=== PATIENT | male | born 1945 | race Hispanic/Latino ===

== ENCOUNTER 2016-06-27 17:37 | Emergency (ER) | payer MEDICARE, OTHER ==
[2016-06-27 17:43] VITALS: RESP 21; TEMP 98.9; O2SAT 100
--- NOTE | 2016-06-27 18:19 | ED PDOC ---
HPI: General Adult Time Seen by Provider: 06/27/16 17:47 Chief Complaint (Nursing): High Blood Pressure Chief Complaint (Provider): I felt my pressure high History Per: Patient History/Exam Limitations: no limitations Current Symptoms Are (Timing): Still Present Recently: Seen In ED Additional Complaint(s): 70yo male states he took his BP at home and was elevated 150/90, c/o feeling mildly dizzy. Took his benicar about 4hrs ago. Denies chest pain, fever, headache, SOB or focal weakness. Appears intoxicated with flat affect. Denies drinking alcohol today. Past Medical History Reviewed: Historical Data, Nursing Documentation, Vital Signs Vital Signs: Last Vital Signs Temp 98.9 F 06/27/16 17:39 Pulse 62 06/27/16 19:04 Resp 21 06/27/16 17:39 BP 125/66 06/27/16 19:04 Pulse Ox 100 06/27/16 18:21 - Medical History PMH: Depression, HTN - Family History Family History: States: Unknown Family Hx - Home Medications Home Medications: Ambulatory Orders Medication Instructions Recorded Amoxicillin/Clavulanate [Augmentin 1 tab PO BID #14 tab 03/24/16 875 MG-125 MG] MetFORMIN [glucoPHAGE] PO DAILY 03/24/16 Olmesartan Medoxomil [Benicar] 5 mg PO DAILY 03/24/16 traMADol [Ultram] 50 mg PO TID PRN #15 tab 03/24/16 - Allergies Allergies/Adverse Reactions: Allergies Allergy/AdvReac Type Severity Reaction Status Date / Time No Known Allergies Allergy Verified 03/24/16 17:12 Review of Systems ROS Statement: Except As Marked, All Systems Reviewed And Found Negative Constitutional: Negative for: Fever, Chills Cardiovascular: Positive for: Light Headedness Respiratory: Negative for: Cough, Shortness of Breath Gastrointestinal: Negative for: Nausea, Vomiting Genitourinary Male: Negative for: Dysuria, Frequency, Incontinence Musculoskeletal: Negative for: Shoulder Pain Neurological: Positive for: Dizziness. Negative for: Weakness, Numbness, Seizures, Altered Mental Status Physical Exam - Reviewed Nursing Documentation Reviewed: Yes Vital Signs Reviewed: Yes - Physical Exam Appears: Positive for: Well, Non-toxic, No Acute Distress Head Exam: Positive for: ATRAUMATIC, NORMAL INSPECTION, NORMOCEPHALIC Skin: Positive for: Warm, Diaphoresis (mild) Eye Exam: Positive for: EOMI, Normal appearance, PERRL ENT: Positive for: Normal ENT Inspection Neck: Positive for: Normal, Painless ROM Cardiovascular/Chest: Positive for: Regular Rate, Rhythm Respiratory: Positive for: CNT, Normal Breath Sounds Gastrointestinal/Abdominal: Positive for: Normal Exam, Bowel Sounds, Soft. Negative for: Tenderness, Guarding Back: Positive for: Normal Inspection Extremity: Positive for: Normal ROM Neurologic/Psych: Positive for: Alert, Oriented, Mood/Affect (flat). Negative for: Motor/Sensory Deficits - Laboratory Results Result Diagrams: 06/27/16 18:36 06/27/16 18:36 - ECG O2 Sat by Pulse Oximetry: 100 Pulse Ox Interpretation: Normal Medical Decision Making Medical Decision Making: will check basic labs, etoh level and EKG. Monitor in ED given clinical presentation. Old charts reviewed. Disposition - Clinical Impression Clinical Impression: Elevated blood pressure reading - Patient ED Disposition Is Patient to be Admitted: Transfer of Care - Disposition Referrals: FAMILY PROVIDER,NO [Primary Care Provider] - Disposition Time: 19:07 Condition: STABLE Patient Signed Over To: Chela Shipman Handoff Comments: pending re-eval/labs
[2016-06-27 18:41] LABS: BASO # 0.1 K/uL (0.0-0.2); BASO % 0.5 % (0.0-2.0); EOS # 0.1 K/uL (0.0-0.7); EOS % 0.5 % (0.0-4.0); HEMATOCRIT 35.7 % (35.0-51.0); LYMPH # 1.9 K/uL (1.0-4.3); LYMPH % 19.1 % (20.0-40.0); MEAN CELL VOLUME 85.4 fl (80.0-94.0); MEAN CORPUSCULAR HEMOGLOBIN 27.8 pg (27.0-31.0); MEAN CORPUSCULAR HGB CONC 32.5 g/dL (33.0-37.0); MEAN PLATELET VOLUME 8.3 fl (7.2-11.7); MONO # 1.3 K/uL (0.0-0.8); MONO % 12.6 % (0.0-10.0); NEUT # 6.8 K/uL (1.8-7.0); NEUT % 67.3 % (50.0-75.0); RED CELL DISTRIBUTION WIDTH 15.3 % (11.5-14.5); WHITE BLOOD COUNT 10.2 K/uL (4.8-10.8)
[2016-06-27 18:52] LABS: ALCOHOL SERUM < 10 mg/dl (0-10); BLOOD UREA NITROGEN 13 mg/dl (9-20); CALCIUM 9.2 mg/dL (8.4-10.2); CARBON DIOXIDE 23 mmol/L (22-30); CHLORIDE 103 mmol/L (98-107); GFR AFRICAN-AMERICAN > 60; GLUCOSE,RANDOM 98 mg/dL (75-110); POTASSIUM 4.7 MMOL/L (3.6-5.0); SODIUM 142 mmol/l (132-148)
[2016-06-27 19:05] VITALS: BP 125/66; PULSE 62
--- NOTE | 2016-06-27 19:42 | ED PDOC ---
- Laboratory Results Result Diagrams: 06/27/16 18:36 06/27/16 18:36 - ECG O2 Sat by Pulse Oximetry: 100 (RA) Pulse Ox Interpretation: Normal Medical Decision Making Medical Decision Makin:00 Patient endorsed over to me by Rafat Villa III, DO, pending remainder of ED workup, reevaluation and final disposition. 22:45 Labs and urine reviewed with no clinically significant abnormalities. Upon provider reevaluation patient is feeling better, is medically stable, and requires no further treatment in the ED at this time. Patient will be discharged home. Counseling was provided and all questions were answered regarding diagnosis and need for follow up with his the referred clinic. Information for information broker service also given to facilitate making of followup appointment. There is agreement to discharge plan. Return if symptoms persist or worsen. Clinical Impression: elevated blood pressure reading Scribe Attestation: Documented by Isabel Soriano, acting as a scribe for Chela Shipman MD. Provider Scribe Attestation: All medical record entries made by the Scribe were at my direction and personally dictated by me. I have reviewed the chart and agree that the record accurately reflects my personal performance of the history, physical exam, medical decision making, and the department course for this patient. I have also personally directed, reviewed, and agree with the discharge instructions and disposition. Disposition Counseled Patient/Family Regarding: Studies Performed, Diagnosis, Need For Followup - Clinical Impression Clinical Impression: Elevated blood pressure reading - POA Present On Arrival: None - Disposition Referrals: [facility] [Outside] [facility] [Outside] FAMILY PROVIDER,NO [Primary Care Provider] - Disposition: Routine/Home Disposition Time: 22:05 Condition: STABLE Additional Instructions: follow up with your primary doctor in 2 days. return to the ED with any worsening or concerning symptoms Instructions: Hypertension (ED)
--- NOTE | 2016-06-28 19:36 | CARD ---
APPROVED REPORT EKG Measurement Heart [id number] <Conclusion> Sinus rhythm with 1st degree AV block Left anterior fascicular block Nonspecific ST abnormality Abnormal ECG
== END 2016-06-27 22:55 | disposition home or self-care (01) ==
LOC: H.ER 17:37
DX: I10 Essential (primary) hypertension (principal)
CPT/HCPCS: 80048; 85025; 93005; 99284; G0480

== ENCOUNTER 2016-07-03 05:08 | Emergency (ER) | payer MEDICARE ==
[2016-07-03 05:33] VITALS: BP 156/80; PULSE 61; RESP 16; TEMP 98.7; O2SAT 100
--- NOTE | 2016-07-03 05:52 | ED PDOC ---
Lower Extremity Pain/Injury Time Seen by Provider: 07/03/16 05:25 Chief Complaint (Nursing): Lower Extremity Problem/Injury Chief Complaint (Provider): left foot/ankle pain History Per: Patient History/Exam Limitations: no limitations Onset/Duration Of Symptoms: Days (2) Current Symptoms Are (Timing): Still Present Additional History Per: Patient Additional Complaint(s): 70 y/o male history of hypertension ambulates to ED for left ankle/foot pain x 2 days. Patient states he has been doing excessive walking and notes pain to start on outside of ankle and top of foot. Patient notes this has been on-and- off issue x years. Denies fever, trauma, numbness/weakness left lower extremity, limitation of movement. No relief with Tylenol. Past Medical History Reviewed: Historical Data, Nursing Documentation, Vital Signs Vital Signs: Last Vital Signs Temp 98.7 F 07/03/16 05:25 Pulse 61 07/03/16 05:25 Resp 16 07/03/16 05:25 BP 156/80 H 07/03/16 05:25 Pulse Ox 100 07/03/16 05:25 - Medical History PMH: Depression, HTN - Family History Family History: States: Unknown Family Hx - Home Medications Home Medications: Ambulatory Orders Medication Instructions Recorded Amoxicillin/Clavulanate [Augmentin 1 tab PO BID #14 tab 03/24/16 875 MG-125 MG] MetFORMIN [glucoPHAGE] PO DAILY 03/24/16 Olmesartan Medoxomil [Benicar] 5 mg PO DAILY 03/24/16 traMADol [Ultram] 50 mg PO TID PRN #15 tab 03/24/16 Ibuprofen [Motrin Tab] 1 tab PO Q6 PRN #15 tab 07/03/16 - Allergies Allergies/Adverse Reactions: Allergies Allergy/AdvReac Type Severity Reaction Status Date / Time No Known Allergies Allergy Verified 03/24/16 17:12 Review of Systems ROS Statement: Except As Marked, All Systems Reviewed And Found Negative Musculoskeletal: Positive for: Foot Pain (left foot, left ankle) Physical Exam - Reviewed Nursing Documentation Reviewed: Yes Vital Signs Reviewed: Yes - Physical Exam Appears: Positive for: Well, Non-toxic, No Acute Distress Pulses-Dorsalis Pedis (L): 2+ Pulses-Dorsalis Pedis (R): 2+ Pulses-Post. Tibialis (L): 2+ Pulses-Post. Tibialis (R): 2+ Extremity: Positive for: Normal ROM, Tenderness (tender to palpate dorsal proximal left foot, left 2-3 metarsals, left lateral malleolus. No obvious swelling, deformity, erythema, temperature change noted) Neurologic/Psych: Positive for: Alert, Oriented. Negative for: Motor/Sensory Deficits - ECG O2 Sat by Pulse Oximetry: 100 - Other Rad xray left ankle X-Ray: Viewed By Me X-Ray Interpretation: no acute findings xray left foot X-Ray: Viewed By Me X-Ray Interpretation: no acute findings - Progress ED Course And Treament: xray, ibuprofen Patient educated on findings, left foot wrapped in MANDA, air cast given. Educated on RICE. Rx ibuprofen given. Follow up Podiatry. RICE. Return to ED for worsening/concerning symptoms. Disposition - Clinical Impression Clinical Impression: Arthralgia - Patient ED Disposition Is Patient to be Admitted: No Counseled Patient/Family Regarding: Studies Performed, Diagnosis, Need For Followup, Rx Given - Disposition Referrals: Podiatry Clinic [Outside] Disposition: Routine/Home Disposition Time: 06:21 Condition: STABLE Prescriptions: Ibuprofen [Motrin Tab] 1 tab PO Q6 PRN #15 tab PRN Reason: Pain, Moderate (4-7) Instructions: Arthralgia (ED), RICE Therapy (ED)
--- NOTE | 2016-07-03 08:18 | RAD ---
PROCEDURE: Left Ankle Radiographs. HISTORY: atraumatic pain COMPARISON: 03/24/2016 FINDINGS: BONES: Mild osseous hypertrophy consistent with degenerative changes of the medial talar body are noted and similar-appearing. Anterior tibial plafond osseous hypertrophy No fracture. The posterior talar process is prominent as before. Anterior inferior mild calcaneal spurs are suggested. JOINTS: Normal. No osteoarthritis. Ankle mortise maintained. Talar dome intact SOFT TISSUES: Atherosclerotic vascular calcifications OTHER FINDINGS: None. IMPRESSION: Mild osseous hypertrophic changes as above- degenerative basis is consistent with this. No fracture or bone destruction noted. Atherosclerotic vascular disease. Comments: If symptoms persist/warrant consider MRI.
--- NOTE | 2016-07-03 08:39 | RAD ---
PROCEDURE: Left Foot Radiographs. HISTORY: pain, dorsal left foot COMPARISON: 03/24/2016 FINDINGS: BONES: Bipartite medial an lateral sesamoid bones No fracture. Anterior inferior calcaneal spurring Prominent posterior talar process. Minimal hypertrophic changes anterior tibial plafond JOINTS: . Mild 1st metatarsal-phalangeal joint arthrosis SOFT TISSUES: Atherosclerotic vascular calcifications OTHER FINDINGS: None. IMPRESSION: Mild degenerative changes as above. Developmental variants - sesamoid bones No acute fracture or acute pathology noted Atherosclerotic vascular disease
== END 2016-07-03 06:50 | disposition home or self-care (01) ==
LOC: H.ER 05:08
DX: M79.672 Pain in left foot (principal); M25.50 Pain in unspecified joint; I10 Essential (primary) hypertension; Z79.84 Long term (current) use of oral hypoglycemic drugs

== ENCOUNTER 2016-07-08 22:11 | Emergency (ER) | payer MEDICARE ==
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
[2016-07-09 05:43] VITALS: BP 148/72; PULSE 77; RESP 17; TEMP 98.3; O2SAT 98
== END 2016-07-09 05:44 | disposition home or self-care (01) ==
LOC: H.ER 22:11
DX: M54.2 Cervicalgia (principal); I10 Essential (primary) hypertension; Z79.84 Long term (current) use of oral hypoglycemic drugs

== ENCOUNTER 2016-07-13 04:26 | Emergency (ER) | payer MEDICARE ==
[2016-07-13 04:40] VITALS: BP 159/77; PULSE 81; RESP 16; TEMP 98.1; O2SAT 100
--- NOTE | 2016-07-13 04:50 | ED PDOC ---
HPI: General Adult Time Seen by Provider: 07/13/16 04:30 Chief Complaint (Nursing): Lower Extremity Problem/Injury Chief Complaint (Provider): Foot blister History Per: Patient Additional Complaint(s): Pt. states for the past 2 weeks he's had blisters underneath his feet. Pt. attributes these to walking approximately 10 miles a day. Further states he did have a hx of DM but is currently not on medications. Denies fever, trauma, numbness, tingling. Past Medical History Reviewed: Historical Data, Nursing Documentation, Vital Signs Vital Signs: Last Vital Signs Temp 98.1 F 07/13/16 04:36 Pulse 81 07/13/16 04:36 Resp 16 07/13/16 04:36 BP 159/77 H 07/13/16 04:36 Pulse Ox 100 07/13/16 04:52 - Medical History PMH: Depression, HTN - Family History Family History: States: Unknown Family Hx - Home Medications Home Medications: Ambulatory Orders Medication Instructions Recorded No Known Home Med 07/13/16 - Allergies Allergies/Adverse Reactions: Allergies Allergy/AdvReac Type Severity Reaction Status Date / Time No Known Allergies Allergy Verified 03/24/16 17:12 Review of Systems ROS Statement: Except As Marked, All Systems Reviewed And Found Negative Musculoskeletal: Positive for: Foot Pain Physical Exam - Physical Exam Appears: Positive for: Well, Non-toxic, No Acute Distress Skin: Positive for: Normal Color, Warm. Negative for: Rash Extremity: Positive for: Normal ROM, Other (multiple healing blisters without break in skin integrity or surrounding erythema or discharge on plantar surface of proximal phalanxes of all toes on L foot) - ECG O2 Sat by Pulse Oximetry: 100 - Progress ED Course And Treament: FSBS: 144 Bacitracin ointment applied to blisters. Disposition - Clinical Impression Clinical Impression: Friction blister - Patient ED Disposition Is Patient to be Admitted: No - Disposition Referrals: [facility] [Outside] Disposition: Routine/Home Disposition Time: 05:06 Condition: STABLE Instructions: Blister (ED)
[2016-07-13] MEDS ORDERED: Bacitracin OINT 15GM TOP STA (05:05)
== END 2016-07-13 05:23 | disposition home or self-care (01) ==
LOC: H.ER 04:26
DX: M79.673 Pain in unspecified foot (principal); E11.9 Type 2 diabetes mellitus without complications; I10 Essential (primary) hypertension

== ENCOUNTER 2016-07-13 21:58 | Emergency (ER) | payer MEDICARE ==
[2016-07-13 22:04] VITALS: BP 164/81; PULSE 84; RESP 18; TEMP 97.8; O2SAT 98
--- NOTE | 2016-07-13 22:13 | ED PDOC ---
HPI: General Adult Time Seen by Provider: 07/13/16 22:05 Chief Complaint (Nursing): Lower Extremity Problem/Injury Chief Complaint (Provider): Blisters to feet History Per: Patient Additional Complaint(s): Pt. states he's had painful blisters to his feet for several weeks now. Pt. was seen earlier this morning by this continuity writer for same complaint. Of note, pt. states he does walk approximately 10 miles a day. Denies fever, trauma, discharge. Past Medical History Reviewed: Historical Data, Nursing Documentation, Vital Signs Vital Signs: Last Vital Signs Temp 97.8 F 07/13/16 22:03 Pulse 84 07/13/16 22:03 Resp 18 07/13/16 22:03 BP 164/81 H 07/13/16 22:03 Pulse Ox 98 07/13/16 22:03 - Medical History PMH: Depression, HTN - Family History Family History: States: No Known Family Hx - Home Medications Home Medications: Ambulatory Orders Medication Instructions Recorded No Known Home Med 07/13/16 - Allergies Allergies/Adverse Reactions: Allergies Allergy/AdvReac Type Severity Reaction Status Date / Time No Known Allergies Allergy Verified 03/24/16 17:12 Review of Systems ROS Statement: Except As Marked, All Systems Reviewed And Found Negative Musculoskeletal: Positive for: Foot Pain Physical Exam - Physical Exam Appears: Positive for: Well, Non-toxic, No Acute Distress Skin: Positive for: Normal Color, Warm. Negative for: Rash Extremity: Positive for: Normal ROM, Other (b/l feet with scattered non-intact vesicles on plantar surface of both feet without surrounding erythema, discharge (unchanged from earlier this morning)) Neurologic/Psych: Positive for: Alert, Oriented - ECG O2 Sat by Pulse Oximetry: 98 Disposition - Clinical Impression Clinical Impression: Friction blister - Patient ED Disposition Is Patient to be Admitted: No - Disposition Disposition: Routine/Home Disposition Time: 22:18 Condition: STABLE Instructions: Blister (ED)
== END 2016-07-13 22:50 | disposition home or self-care (01) ==
LOC: H.ER 21:58
DX: M79.673 Pain in unspecified foot (principal); I10 Essential (primary) hypertension

== ENCOUNTER 2016-07-18 04:42 | Emergency (ER) | payer MEDICARE ==
[2016-07-18 04:57] VITALS: TEMP 98.7
--- NOTE | 2016-07-18 06:18 | ED PDOC ---
HPI: Psych/Substance Abuse Time Seen by Provider: 07/18/16 04:45 Chief Complaint (Nursing): Psychiatric Evaluation Chief Complaint (Provider): Psychiatric Evaluation ED Caveat: Acuity of Condition History Per: Patient History/Exam Limitations: clinical condition Onset/Duration Of Symptoms: Unknown Current Symptoms Are (Timing): Still Present Suicide/Self Injury Attempted (Context): None Additional Complaint(s): 70 year old male presents to ED stating that he needs to be at the ED to run for [employer] and has a past medical history of HTN and DM. Patient denies all other possible comorbidities and gives no other reason for arriving to the ED besides that it is "because he is running for [employer]". Denies all medical complaints. PCP: None Past Medical History Reviewed: Historical Data, Nursing Documentation, Vital Signs Vital Signs: Last Vital Signs Temp 98.7 F 07/18/16 04:52 Pulse 71 07/18/16 05:15 Resp 16 07/18/16 04:52 BP 148/81 07/18/16 05:15 Pulse Ox 99 07/18/16 04:52 - Medical History PMH: Depression, Diabetes, HTN - Surgical History Surgical History: No Surg Hx - Family History Family History: States: Unknown Family Hx - Social History Current smoker - smoking cessation education provided: No Ex-Smoker (has not smoked in the last 12 months): No Alcohol: None Drugs: Denies - Home Medications Home Medications: Ambulatory Orders Medication Instructions Recorded No Known Home Med 07/13/16 - Allergies Allergies/Adverse Reactions: Allergies Allergy/AdvReac Type Severity Reaction Status Date / Time No Known Allergies Allergy Verified 07/18/16 04:52 Review of Systems Review Of Systems: ROS cannot be obtained secondary to pt's inabilty to answer questions. Physical Exam - Reviewed Nursing Documentation Reviewed: Yes Vital Signs Reviewed: Yes - Physical Exam Appears: Positive for: Non-toxic, No Acute Distress Head Exam: Positive for: ATRAUMATIC Skin: Positive for: Normal Color Cardiovascular/Chest: Positive for: Regular Rate, Rhythm. Negative for: Murmur Respiratory: Positive for: Normal Breath Sounds. Negative for: Respiratory Distress Gastrointestinal/Abdominal: Positive for: Normal Exam Extremity: Positive for: Normal ROM. Negative for: Deformity Neurologic/Psych: Positive for: Alert, Mood/Affect (Bizarre affect). Negative for: Oriented, Motor/Sensory Deficits - Laboratory Results Result Diagrams: 07/18/16 06:10 07/18/16 06:10 - ECG O2 Sat by Pulse Oximetry: 99 (RA) Pulse Ox Interpretation: Normal Medical Decision Making Medical Decision Makin Initial impression: bizzzare behavior r/o EtOH intoxication, personality disorder Initial plan: * EtOH serum * Labs * UDrug Screen * Urine C&S * UA awaiting UA and labs Will be medically cleared before psych screening [address] to [address] Ari Lopez Attestation: Documented by Destinee Hammonds acting as a scribe for Chela Shipman. MD Lopez Attestation: All medical record entries made by the Scribe were at my direction and personally dictated by me. I have reviewed the chart and agree that the record accurately reflects my personal performance of the history, physical exam, medical decision making, and the department course for this patient. I have also personally directed, reviewed, and agree with the discharge instructions and disposition. Disposition - Clinical Impression Clinical Impression: Bipolar disorder - Patient ED Disposition Is Patient to be Admitted: Transfer of Care - Disposition Referrals: [facility] [Outside] - 07/19/16 Disposition: Transfer of Care Disposition Time: 07:00 Condition: STABLE Additional Instructions: Return if not better in 3 days. Instructions: Bipolar Disorder (ED) Patient Signed Over To: Fritz Chapman Handoff Comments: Pending crisis eval
[2016-07-18 06:26] LABS: BASO % 0.5 % (0.0-2.0); EOS # 0.1 K/uL (0.0-0.7); EOS % 1.3 % (0.0-4.0); HEMATOCRIT 34.7 % (35.0-51.0); LYMPH # 2.3 K/uL (1.0-4.3); LYMPH % 35.7 % (20.0-40.0); MEAN CELL VOLUME 86.7 fl (80.0-94.0); MEAN CORPUSCULAR HEMOGLOBIN 27.3 pg (27.0-31.0); MEAN CORPUSCULAR HGB CONC 31.5 g/dL (33.0-37.0); MEAN PLATELET VOLUME 9.2 fl (7.2-11.7); MONO % 15.8 % (0.0-10.0); NEUT # 3.1 K/uL (1.8-7.0); NEUT % 46.7 % (50.0-75.0); NRBC % 0.1 % (0.0-0.0); RED CELL DISTRIBUTION WIDTH 16.4 % (11.5-14.5); WHITE BLOOD COUNT 6.5 K/uL (4.8-10.8)
[2016-07-18 06:39] LABS: ALB/GLOB RATIO 1.2 (1.0-2.1); ALCOHOL SERUM < 10 mg/dl (0-10); ALKALINE PHOSPHATASE 64 U/L (38-126); ALT/SGPT 49 U/L (21-72); AST/SGOT 50 U/L (17-59); BILIRUBIN,TOTAL 0.3 mg/dl (0.2-1.3); BLOOD UREA NITROGEN 14 mg/dl (9-20); CARBON DIOXIDE 25 mmol/L (22-30); CHLORIDE 104 mmol/L (98-107); GFR AFRICAN-AMERICAN > 60; GLUCOSE,RANDOM 120 mg/dL (75-110); POTASSIUM 3.8 MMOL/L (3.6-5.0); SODIUM 142 mmol/l (132-148); TOTAL PROTEIN 6.3 G/DL (6.3-8.2)
[2016-07-18 06:40] LABS: RBC URINE < 1 /hpf (0-3); URINE BACTERIA RARE (<OCC); URINE BILIRUBIN NEGATIVE (NEGATIVE); URINE BLOOD NEGATIVE (NEGATIVE); URINE COLOR YELLOW (YELLOW); URINE GLUCOSE (UA) NEG (Normal); URINE KETONE NEGATIVE (NEGATIVE); URINE LEUKOCYTE ESTERASE NEG Leu/uL (Negative); URINE PROTEIN NEGATIVE (NEGATIVE); URINE UROBILINOGEN 0.2-1.0 mg/dL (0.2-1.0); WBC URINE 1 /hpf (0-5)
--- NOTE | 2016-07-18 07:25 | ED PDOC ---
- Laboratory Results Result Diagrams: 07/18/16 06:10 07/18/16 06:10 - ECG O2 Sat by Pulse Oximetry: 99 (RA) - Progress ED Course And Treament: 826: Stable. Crisis saw pt. Does not meet criteria for admit. Fu outpt. AAOx3. Ambulating. Medical Decision Making Medical Decision Making: Time: 0700 Patient signed out by Dr. Shipman pending crisis evaluation Scribe Attestation: Documented by Jacinta Hadley acting as a scribe for Fritz Chapman MD MD Scribe Attestation: All medical record entries made by the Scribe were at my direction and personally dictated by me. I have reviewed the chart and agree that the record accurately reflects my personal performance of the history, physical exam, medical decision making, and the department course for this patient. I have also personally directed, reviewed, and agree with the discharge instructions and disposition. Disposition - Clinical Impression Clinical Impression: Bipolar disorder - POA Present On Arrival: None - Disposition Referrals: [facility] [Outside] - 07/19/16 Disposition: Routine/Home Disposition Time: 08:27 Condition: STABLE Additional Instructions: Return if not better in 3 days. Instructions: Bipolar Disorder (ED)
[2016-07-18 08:00] VITALS: RESP 18
[2016-07-18 08:43] VITALS: BP 141/67; PULSE 82
[2016-07-18 20:43] VITALS: O2SAT 99
== END 2016-07-18 09:38 | disposition home or self-care (01) ==
LOC: H.ER 04:42
DX: F31.9 Bipolar disorder, unspecified (principal); E11.9 Type 2 diabetes mellitus without complications; I10 Essential (primary) hypertension; Z87.891 Personal history of nicotine dependence
CPT/HCPCS: 80053; 81003; 82948; 85025; 87086; 99283; G0480

== ENCOUNTER 2016-07-25 10:46 | Emergency (ER) | payer MEDICARE ==
[2016-07-25 10:51] VITALS: BP 173/87; PULSE 84; TEMP 99; O2SAT 99
[2016-07-25 10:52] VITALS: BMI 28.4
[2016-07-25 12:51] LABS: BASO % 0.3 % (0.0-2.0); EOS % 0.6 % (0.0-4.0); HEMATOCRIT 34.1 % (35.0-51.0); LYMPH # 2.2 K/uL (1.0-4.3); MEAN CELL VOLUME 84.8 fl (80.0-94.0); MEAN CORPUSCULAR HEMOGLOBIN 27.1 pg (27.0-31.0); MEAN CORPUSCULAR HGB CONC 31.9 g/dL (33.0-37.0); MEAN PLATELET VOLUME 9.2 fl (7.2-11.7); MONO # 0.9 K/uL (0.0-0.8); MONO % 10.4 % (0.0-10.0); NEUT # 5.6 K/uL (1.8-7.0); NEUT % 63.7 % (50.0-75.0); RED CELL DISTRIBUTION WIDTH 15.3 % (11.5-14.5); WHITE BLOOD COUNT 8.8 K/uL (4.8-10.8)
[2016-07-25 13:04] LABS: ALCOHOL SERUM < 10 mg/dl (0-10); BLOOD UREA NITROGEN 22 mg/dl (9-20); CALCIUM 9.1 mg/dL (8.4-10.2); CARBON DIOXIDE 28 mmol/L (22-30); CHLORIDE 103 mmol/L (98-107); GFR AFRICAN-AMERICAN > 60; GLUCOSE,RANDOM 131 mg/dL (75-110); POTASSIUM 3.8 MMOL/L (3.6-5.0); SODIUM 140 mmol/l (132-148)
--- NOTE | 2016-07-25 13:47 | ED PDOC ---
HPI: General Adult Time Seen by Provider: 07/25/16 11:32 Chief Complaint (Nursing): GI Problem Chief Complaint (Provider): constipation, rectal bleeding History Per: Patient History/Exam Limitations: no limitations Current Symptoms Are (Timing): Better Severity: Mild Recently: Seen In ED Additional Complaint(s): 70yo male c/o constipation and straining w bowel movement, saw trace bright red blood in stool and on paper when wipes. Denies abdominal pain, weight loss or fever. Denies nausea or vomiting. States had colonoscopy about 8yrs ago. Denies using aspiring or blood thinning medications. Denies alcohol use. PMD Damle Past Medical History Reviewed: Historical Data, Nursing Documentation, Vital Signs Vital Signs: Last Vital Signs Temp 99 F 07/25/16 10:50 Pulse 84 07/25/16 10:50 Resp BP 173/87 H 07/25/16 10:50 Pulse Ox 99 07/25/16 10:50 - Medical History PMH: Depression, Diabetes, HTN Denies: Hepatitis, HIV, Seizures, Sexually Transmitted Disease - Family History Family History: States: Unknown Family Hx - Living Arrangements Living Arrangements: Alone - Social History Current smoker - smoking cessation education provided: No Alcohol: None - Home Medications Home Medications: Ambulatory Orders Medication Instructions Recorded Magnesium Citrate [Citrate of Mag] 50 ml PO TID PRN #1 bottle 07/25/16 Sod Phos,M-B/Na Phos,Di-Ba [Fleet 133 ml RC BID PRN #2 enema 07/25/16 Enema] - Allergies Allergies/Adverse Reactions: Allergies Allergy/AdvReac Type Severity Reaction Status Date / Time No Known Allergies Allergy Verified 07/18/16 04:52 Review of Systems ROS Statement: Except As Marked, All Systems Reviewed And Found Negative Constitutional: Negative for: Fever, Chills Cardiovascular: Negative for: Chest Pain, Palpitations Respiratory: Negative for: Cough, Shortness of Breath Gastrointestinal: Positive for: Constipation, Hematochezia, Rectal Pain. Negative for: Nausea, Vomiting, Melena, Hematemesis Genitourinary Male: Negative for: Dysuria, Frequency Musculoskeletal: Negative for: Neck Pain, Shoulder Pain Skin: Negative for: Rash, Lesions Neurological: Negative for: Weakness, Numbness Psych: Negative for: Anxiety Physical Exam - Reviewed Nursing Documentation Reviewed: Yes Vital Signs Reviewed: Yes - Physical Exam Appears: Positive for: Well, Non-toxic, No Acute Distress Head Exam: Positive for: ATRAUMATIC, NORMAL INSPECTION, NORMOCEPHALIC Skin: Positive for: Normal Color, Warm, DRY Eye Exam: Positive for: EOMI, Normal appearance, PERRL ENT: Positive for: Normal ENT Inspection Neck: Positive for: Normal, Painless ROM Cardiovascular/Chest: Positive for: Regular Rate, Rhythm Respiratory: Positive for: CNT, Normal Breath Sounds Gastrointestinal/Abdominal: Positive for: Bowel Sounds, Soft. Negative for: Tenderness, Guarding Back: Positive for: Normal Inspection Rectal: Positive for: Other (brown stool, +hemorrhoid 6:00 nonthrombosed, small bleeding to hemorrhoid). Negative for: Black Stool Extremity: Positive for: Normal ROM Neurologic/Psych: Positive for: Alert, Oriented. Negative for: Motor/Sensory Deficits - Laboratory Results Result Diagrams: 07/25/16 12:40 07/25/16 12:40 - ECG O2 Sat by Pulse Oximetry: 99 Medical Decision Making Medical Decision Making: Bloodwork performed, Hgb stable from prior. Pt w flight of ideas? but has been seen by film writer in past and baseline. ETOH negative. Seen by crisis last visit. Disposition - Clinical Impression Clinical Impression: Constipation, Rectal bleeding - Patient ED Disposition Is Patient to be Admitted: No Counseled Patient/Family Regarding: Studies Performed, Diagnosis, Need For Followup, Rx Given - Disposition Referrals: Gabrielle OROZCO,MD Guy [Medical Doctor] - Disposition: Routine/Home Disposition Time: 13:50 Condition: STABLE Additional Instructions: See GI doctor for colonoscopy if not performed in last 5 years. Return to ER for any new or worsening symptoms. Prescriptions: Magnesium Citrate [Citrate of Mag] 50 ml PO TID PRN #1 bottle PRN Reason: Constipation Sod Phos,M-B/Na Phos,Di-Ba [Fleet Enema] 133 ml RC BID PRN #2 enema PRN Reason: Constipation Instructions: Constipation (ED), Rectal Bleeding (ED)
== END 2016-07-25 14:10 | disposition home or self-care (01) ==
LOC: H.ER 10:46
DX: K59.00 Constipation, unspecified (principal); K62.5 Hemorrhage of anus and rectum; E11.9 Type 2 diabetes mellitus without complications; I10 Essential (primary) hypertension
CPT/HCPCS: 80048; 85025; 99283; G0480

== ENCOUNTER 2016-07-26 01:11 | Emergency (ER) | payer MEDICARE ==
[2016-07-26 01:12] VITALS: BMI 28.4
[2016-07-26 01:32] VITALS: BP 168/92; PULSE 94; RESP 18; TEMP 98.1; O2SAT 98
--- NOTE | 2016-07-26 01:37 | ED PDOC ---
HPI: Psych/Substance Abuse Time Seen by Provider: 07/26/16 01:36 Chief Complaint (Nursing): Alcohol Ingestion Chief Complaint (Provider): ALCOHOL INGESTION History Per: Patient (70 Y/O MALE BROUGHT TO ED FOR ALCOHOL INTOXICATION. DENIES ANY COMPLAINTS. NO FALLS.) Past Medical History Reviewed: Historical Data, Nursing Documentation, Vital Signs Vital Signs: Last Vital Signs Temp 98.1 F 07/26/16 01:30 Pulse 94 H 07/26/16 01:30 Resp 18 07/26/16 01:30 BP 168/92 H 07/26/16 01:30 Pulse Ox 98 07/26/16 01:30 - Medical History PMH: Depression, Diabetes, HTN Denies: Hepatitis, HIV, Seizures, Sexually Transmitted Disease - Family History Family History: States: Unknown Family Hx - Home Medications Home Medications: Ambulatory Orders Medication Instructions Recorded Magnesium Citrate [Citrate of Mag] 50 ml PO TID PRN #1 bottle 07/25/16 Sod Phos,M-B/Na Phos,Di-Ba [Fleet 133 ml RC BID PRN #2 enema 07/25/16 Enema] - Allergies Allergies/Adverse Reactions: Allergies Allergy/AdvReac Type Severity Reaction Status Date / Time No Known Allergies Allergy Verified 07/18/16 04:52 Review of Systems ROS Statement: Except As Marked, All Systems Reviewed And Found Negative Physical Exam - Reviewed Nursing Documentation Reviewed: Yes Vital Signs Reviewed: Yes - Physical Exam Appears: Positive for: Well, Non-toxic, No Acute Distress Head Exam: Positive for: ATRAUMATIC, NORMAL INSPECTION, NORMOCEPHALIC Skin: Positive for: Normal Color, Warm, DRY Eye Exam: Positive for: EOMI, Normal appearance, PERRL ENT: Positive for: Normal ENT Inspection Neck: Positive for: Normal, Painless ROM Cardiovascular/Chest: Positive for: Regular Rate, Rhythm Respiratory: Positive for: CNT, Normal Breath Sounds Gastrointestinal/Abdominal: Positive for: Normal Exam, Bowel Sounds, Soft Back: Positive for: Normal Inspection Extremity: Positive for: Normal ROM Neurologic/Psych: Positive for: Alert, Oriented - ECG O2 Sat by Pulse Oximetry: 98 Disposition - Clinical Impression Clinical Impression: Alcohol ingestion - Patient ED Disposition Is Patient to be Admitted: No - Disposition Disposition: Routine/Home Disposition Time: 04:49 Condition: FAIR Instructions: Alcohol Intoxication (ED)
== END 2016-07-26 05:45 | disposition home or self-care (01) ==
LOC: H.ER 01:11
DX: F10.129 Alcohol abuse with intoxication, unspecified (principal); E11.9 Type 2 diabetes mellitus without complications; I10 Essential (primary) hypertension

== ENCOUNTER 2016-08-03 05:32 | Emergency (ER) | payer MEDICARE ==
[2016-08-03 05:33] VITALS: BMI 28.4
--- NOTE | 2016-08-03 05:49 | ED PDOC ---
HPI: General Adult Chief Complaint (Provider): Chronic neck pain History Per: Patient History/Exam Limitations: no limitations Onset/Duration Of Symptoms: Days Additional Complaint(s): Pt states that he has chronic neck pain and he is taking muscle relaxers. Pt was sitting in the waiting room today for 3 hours prior to registering to be seen. PT states he has not been see by orthopedics. PT reports x-rays being completed in the past. Past Medical History Reviewed: Historical Data, Nursing Documentation, Vital Signs - Medical History PMH: Depression, Diabetes, HTN Denies: Hepatitis, HIV, Chronic Kidney Disease, Seizures, Sexually Transmitted Disease - Surgical History Surgical History: No Surg Hx - Family History Family History: States: Unknown Family Hx - Living Arrangements Living Arrangements: With Family - Social History Current smoker - smoking cessation education provided: No - Home Medications Home Medications: Ambulatory Orders Medication Instructions Recorded Magnesium Citrate [Citrate of Mag] 50 ml PO TID PRN #1 bottle 07/25/16 Sod Phos,M-B/Na Phos,Di-Ba [Fleet 133 ml RC BID PRN #2 enema 07/25/16 Enema] - Allergies Allergies/Adverse Reactions: Allergies Allergy/AdvReac Type Severity Reaction Status Date / Time No Known Allergies Allergy Verified 07/18/16 04:52 Physical Exam - Reviewed Nursing Documentation Reviewed: Yes Vital Signs Reviewed: Yes - Physical Exam Appears: Positive for: Well, Non-toxic, No Acute Distress Head Exam: Positive for: ATRAUMATIC, NORMAL INSPECTION, NORMOCEPHALIC Skin: Positive for: Normal Color, Warm, DRY Eye Exam: Positive for: Normal appearance ENT: Positive for: Normal ENT Inspection Neck: Positive for: Normal, Painless ROM Cardiovascular/Chest: Positive for: Regular Rate, Rhythm Respiratory: Positive for: CNT, Normal Breath Sounds Gastrointestinal/Abdominal: Positive for: Normal Exam, Bowel Sounds, Soft Back: Positive for: Normal Inspection Extremity: Positive for: Normal ROM Neurologic/Psych: Positive for: Alert, Oriented Disposition - Clinical Impression Clinical Impression: Neck pain - Disposition Referrals: Saloni Cisneros MD [Staff Provider] - Disposition: Routine/Home Disposition Time: 05:51 Condition: STABLE Instructions: Cervical Sprain (ED)
[2016-08-03 05:53] VITALS: BP 139/84; PULSE 78; RESP 16; TEMP 98; O2SAT 97
== END 2016-08-03 05:55 | disposition home or self-care (01) ==
LOC: H.ER 05:32
DX: M54.2 Cervicalgia (principal)

== ENCOUNTER 2016-08-03 22:49 | Emergency (ER) | payer MEDICARE ==
[2016-08-03 22:49] VITALS: BMI 28.4
[2016-08-03 23:01] VITALS: BP 149/94; PULSE 90; RESP 18; TEMP 98; O2SAT 99
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
--- NOTE | 2016-08-04 08:26 | RAD ---
HISTORY: pain COMPARISON: No prior FINDINGS: BONES: Old scaphoid waist fracture. JOINTS: Normal. No osteoarthritis. SOFT TISSUE: Normal. OTHER FINDINGS: None . IMPRESSION: Old scaphoid waist fracture.
== END 2016-08-03 23:57 | disposition home or self-care (01) ==
LOC: H.ER 22:49
DX: S60.051A Contusion of right little finger without damage to nail, initial encounter (principal); W19.XXXA Unspecified fall, initial encounter; Y92.89 Other specified places as the place of occurrence of the external cause; I10 Essential (primary) hypertension; E11.9 Type 2 diabetes mellitus without complications

== ENCOUNTER 2016-08-05 02:47 | Emergency (ER) | payer MEDICARE ==
[2016-08-05 02:47] VITALS: BMI 28.4
[2016-08-05 03:14] VITALS: BP 157/82; PULSE 76; RESP 16; TEMP 98; O2SAT 99
--- NOTE | 2016-08-05 03:18 | ED PDOC ---
Lower Extremity Pain/Injury Time Seen by Provider: 08/05/16 03:03 Chief Complaint (Nursing): Lower Extremity Problem/Injury History Per: Patient Additional Complaint(s): Pt. c/o b/l foot pain due to blisters. Pt. states he walks "25 miles/day." Denies trauma, hx of DM. Past Medical History Reviewed: Historical Data, Nursing Documentation, Vital Signs Vital Signs: Last Vital Signs Temp 98 F 08/05/16 03:02 Pulse 76 08/05/16 03:02 Resp 16 08/05/16 03:02 BP 157/82 H 08/05/16 03:02 Pulse Ox 99 08/05/16 03:02 - Medical History PMH: Depression, HTN Denies: Diabetes, Hepatitis, HIV, Chronic Kidney Disease, Seizures, Sexually Transmitted Disease - Family History Family History: States: Unknown Family Hx - Home Medications Home Medications: Ambulatory Orders Medication Instructions Recorded Magnesium Citrate [Citrate of Mag] 50 ml PO TID PRN #1 bottle 07/25/16 Sod Phos,M-B/Na Phos,Di-Ba [Fleet 133 ml RC BID PRN #2 enema 07/25/16 Enema] Ibuprofen [Motrin] 600 mg PO Q6 #20 tab 08/03/16 - Allergies Allergies/Adverse Reactions: Allergies Allergy/AdvReac Type Severity Reaction Status Date / Time No Known Allergies Allergy Verified 07/18/16 04:52 Review of Systems ROS Statement: Except As Marked, All Systems Reviewed And Found Negative Musculoskeletal: Positive for: Foot Pain Physical Exam - Physical Exam Appears: Positive for: Well, Non-toxic, No Acute Distress Skin: Positive for: Normal Color, Warm. Negative for: Rash Pulses-Dorsalis Pedis (L): 2+ Pulses-Dorsalis Pedis (R): 2+ Extremity: Positive for: Normal ROM, Other (b/l plantar surface of feet with small non-intact vesicles on plantar surface of both IP joints of 1st toes. ) - ECG O2 Sat by Pulse Oximetry: 99 Disposition - Clinical Impression Clinical Impression: Friction blister - Patient ED Disposition Is Patient to be Admitted: No - Disposition Referrals: [facility] [Outside] Disposition Time: 03:10 Condition: STABLE Instructions: Blister (ED)
== END 2016-08-05 03:24 | disposition home or self-care (01) ==
LOC: H.ER 02:47
DX: M79.673 Pain in unspecified foot (principal); I10 Essential (primary) hypertension; F32.9 Major depressive disorder, single episode, unspecified

== ENCOUNTER 2016-11-02 02:41 | Emergency (ER) | payer MEDICARE, OTHER ==
[2016-11-02 03:00] VITALS: BMI 27.9
[2016-11-02 03:04] VITALS: BP 174/99; PULSE 78; RESP 16; TEMP 98.1; O2SAT 99
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
== END 2016-11-02 05:09 | disposition home or self-care (01) ==
LOC: H.ER 02:41
DX: S09.93XA Unspecified injury of face, initial encounter (principal); X58.XXXA Exposure to other specified factors, initial encounter

== ENCOUNTER 2016-11-08 02:23 | Emergency (ER) | payer MEDICARE ==
[2016-11-08 02:23] VITALS: BMI 27.9
[2016-11-08 02:44] VITALS: BP 143/89; PULSE 72; RESP 16; TEMP 98.2; O2SAT 99
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
== END 2016-11-08 05:39 | disposition home or self-care (01) ==
LOC: H.ER 02:23
DX: S80.211A Abrasion, right knee, initial encounter (principal); M54.2 Cervicalgia; Y04.0XXA Assault by unarmed brawl or fight, initial encounter; Y92.89 Other specified places as the place of occurrence of the external cause; I10 Essential (primary) hypertension; F32.9 Major depressive disorder, single episode, unspecified

== ENCOUNTER 2016-11-20 02:36 | Emergency (ER) | payer MEDICARE ==
[2016-11-20 02:36] VITALS: BMI 27.9
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
[2016-11-20 02:43] VITALS: BP 136/90; PULSE 74; RESP 16; TEMP 98.7; O2SAT 98
[2016-11-20] MEDS ORDERED: Naproxen 500 MG TAB PO ONE (02:48)
== END 2016-11-20 02:56 | disposition home or self-care (01) ==
LOC: H.ER 02:36
DX: M54.2 Cervicalgia (principal); I10 Essential (primary) hypertension; G89.29 Other chronic pain; F32.9 Major depressive disorder, single episode, unspecified

== ENCOUNTER 2016-11-22 21:09 | Observation (INO) | payer MEDICARE ==
[2016-11-22 21:09] VITALS: BMI 27.9
[2016-11-22 21:15] VITALS: RESP 16; O2SAT 100
--- NOTE | 2016-11-22 22:35 | ED PDOC ---
HPI: Psych/Substance Abuse Time Seen by Provider: 11/22/16 21:15 Chief Complaint (Nursing): Alcohol Ingestion Chief Complaint (Provider): Alcohol Ingestion ED Caveat: Intoxicated History Per: Patient History/Exam Limitations: intoxication Onset/Duration Of Symptoms: Days (x 1) Current Symptoms Are (Timing): Still Present Modifying Factor(s): Alcohol Additional History Per: EMS Additional Complaint(s): Patient was brought in to the ED for public intoxication. 71 y/o male well known to the ED for multiple visits related to alcohol. Patient was found by a bystander, laying down, and EMS was called. PMD: Unknown Past Medical History Reviewed: Historical Data, Nursing Documentation, Vital Signs Vital Signs: Last Vital Signs Temp 98.7 F 11/22/16 21:12 Pulse 73 11/22/16 21:12 Resp 16 11/22/16 21:12 BP 122/73 11/22/16 21:12 Pulse Ox 100 11/22/16 21:12 - Medical History PMH: Depression, HTN Denies: Diabetes, Hepatitis, HIV, Chronic Kidney Disease, Seizures, Sexually Transmitted Disease - Family History Family History: States: Unknown Family Hx - Home Medications Home Medications: Ambulatory Orders Medication Instructions Recorded No Known Home Med 11/22/16 - Allergies Allergies/Adverse Reactions: Allergies Allergy/AdvReac Type Severity Reaction Status Date / Time No Known Allergies Allergy Verified 11/20/16 02:40 Review of Systems Review Of Systems: ROS cannot be obtained secondary to pt's inabilty to answer questions. Physical Exam - Reviewed Nursing Documentation Reviewed: Yes Vital Signs Reviewed: Yes - Physical Exam Appears: Positive for: Non-toxic, No Acute Distress Head Exam: Positive for: ATRAUMATIC, NORMAL INSPECTION, NORMOCEPHALIC Skin: Positive for: Normal Color, Warm, Dry Eye Exam: Positive for: EOMI, Normal appearance, PERRL Neck: Positive for: Normal, Painless ROM, Supple Cardiovascular/Chest: Positive for: Regular Rate, Rhythm. Negative for: Murmur Respiratory: Positive for: Normal Breath Sounds. Negative for: Accessory Muscle Use, Respiratory Distress Gastrointestinal/Abdominal: Positive for: Normal Exam, Soft. Negative for: Tenderness Back: Positive for: Normal Inspection. Negative for: L CVA Tenderness, R CVA Tenderness, Vertebral Tenderness Extremity: Positive for: Normal ROM. Negative for: Pedal Edema, Deformity Neurologic/Psych: Positive for: Oriented (x1, to person), Other (Speech is slurred) - ECG O2 Sat by Pulse Oximetry: 100 (RA) Pulse Ox Interpretation: Normal Medical Decision Making Medical Decision Making: Time: 21:15 Initial Impression: 71 y/o intoxicated male Initial Plan: --Placed on ED-OBS for alcohol intoxication --Ordered Accucheck, urine drug screen, and alcohol serum Scribe Attestation: Documented by Lety Timmons, acting as a scribe for Royce Forrest MD Provider Scribe Attestation: All medical record entries made by the Scribe were at my direction and personally dictated by me. I have reviewed the chart and agree that the record accurately reflects my personal performance of the history, physical exam, medical decision making, and the department course for this patient. I have also personally directed, reviewed, and agree with the discharge instructions and disposition. ED OBSERVATION Date of observation admission: 11/22/16 Time of observation admission: 21:15 - Observation admission statement Patient is being placed in observation because:: Alcohol intoxication - Goals of Observation Goals of observation are:: Clinical sobriety - Progress Note Progress Note: 11/22/16 Time: 21:15 --Patient is resting. Vital signs stable. Time: 22:45 --Patient continues to rest. Vital signs stable. Time: 00:15 --Patient is resting. Vital signs stable. Time: 01:45 --Patient continues to rest. Vital signs stable. Time: 03:15 --Patient is resting. Vital signs stable. Time: 04:45 --Patient ambulating in the ED with steady gait and speaking in sentences. --Patient is clinically sober, and stable for discharge at this time. Clinical Impression: Alcohol abuse with intoxication Disposition - Clinical Impression Clinical Impression: Alcohol abuse with intoxication - Patient ED Disposition Is Patient to be Admitted: No Counseled Patient/Family Regarding: Diagnosis, Need For Followup - Disposition Disposition: Routine/Home Disposition Time: 21:15 Condition: STABLE Forms: [employer] (Montserratian)
[2016-11-23 04:48] VITALS: BP 125/80; PULSE 75; TEMP 98.1
== END 2016-11-23 04:50 | disposition home or self-care (01) ==
LOC: H.ER 21:09 → H.EROBSV 21:15
PROVIDERS: ADMIT Emergency Medicine; ATTEND Emergency Medicine
DX: F10.129 Alcohol abuse with intoxication, unspecified (principal); Y90.6 Blood alcohol level of 120-199 mg/100 ml; I10 Essential (primary) hypertension; F32.9 Major depressive disorder, single episode, unspecified
CPT/HCPCS: 82948; 99282; G0378; G0480

== ENCOUNTER 2016-12-07 22:15 | Emergency (ER) | payer MEDICARE ==
[2016-12-07 22:15] VITALS: BMI 27.9
[2016-12-07 22:20] VITALS: BP 140/78; PULSE 90; RESP 18; TEMP 97.8; O2SAT 99
--- NOTE | 2016-12-07 22:42 | ED PDOC ---
HPI: General Adult Time Seen by Provider: 12/07/16 22:20 Chief Complaint (Nursing): Lower Extremity Problem/Injury History Per: Patient Additional Complaint(s): Pt. states earlier today he was sitting down on a stool when he accidentally fell down landing on his L side injuring his L hip. Denies other injury, head injury. Past Medical History Reviewed: Historical Data, Nursing Documentation, Vital Signs Vital Signs: Last Vital Signs Temp 97.8 F 12/07/16 22:18 Pulse 90 12/07/16 22:18 Resp 18 12/07/16 22:18 BP 140/78 12/07/16 22:18 Pulse Ox 99 12/07/16 22:42 - Medical History PMH: Depression, HTN Denies: Diabetes, Hepatitis, HIV, Chronic Kidney Disease, Seizures, Sexually Transmitted Disease - Family History Family History: States: No Known Family Hx - Home Medications Home Medications: Ambulatory Orders Medication Instructions Recorded No Known Home Med 11/22/16 - Allergies Allergies/Adverse Reactions: Allergies Allergy/AdvReac Type Severity Reaction Status Date / Time No Known Allergies Allergy Verified 11/20/16 02:40 Review of Systems ROS Statement: Except As Marked, All Systems Reviewed And Found Negative Physical Exam - Physical Exam Appears: Positive for: Well, Non-toxic, No Acute Distress Skin: Positive for: Normal Color, Warm. Negative for: Rash Eye Exam: Positive for: Normal appearance Cardiovascular/Chest: Positive for: Chest Non Tender Respiratory: Positive for: CNT, Normal Breath Sounds Pulses-Dorsalis Pedis (L): 2+ Pulses-Dorsalis Pedis (R): 2+ Gastrointestinal/Abdominal: Positive for: Normal Exam, Soft. Negative for: Tenderness Back: Positive for: Normal Inspection. Negative for: L CVA Tenderness, R CVA Tenderness, Vertebral Tenderness Extremity: Positive for: Other (minimal L hip tenderness without deformity; no pelvic tenderness b/l). Negative for: Calf Tenderness (b/l) Neurologic/Psych: Positive for: Alert, Oriented, Gait (steady and unassisted) - ECG O2 Sat by Pulse Oximetry: 99 - Progress ED Course And Treament: L hip xray: no fx; DJD noted Disposition - Clinical Impression Clinical Impression: Hip injury - Patient ED Disposition Is Patient to be Admitted: No - Disposition Referrals: [facility] [Outside] Disposition: Routine/Home Disposition Time: 23:04 Condition: STABLE Instructions: Hip Contusion (ED) Forms: [employer] (Congolese)
--- NOTE | 2016-12-08 08:05 | RAD ---
HISTORY: trauma COMPARISON: No prior FINDINGS: BONES: Normal. No fracture. JOINTS: Normal. No osteoarthritis. SOFT TISSUE: Normal. OTHER FINDINGS: None . IMPRESSION: Normal Bone Xray.
== END 2016-12-07 23:15 | disposition home or self-care (01) ==
LOC: H.ER 22:15
DX: S79.912A Unspecified injury of left hip, initial encounter (principal); W19.XXXA Unspecified fall, initial encounter; Y92.89 Other specified places as the place of occurrence of the external cause; F32.9 Major depressive disorder, single episode, unspecified; I10 Essential (primary) hypertension

== ENCOUNTER 2016-12-09 22:54 | Emergency (ER) | payer MEDICARE ==
[2016-12-09 22:54] VITALS: BMI 27.9
[2016-12-09 23:02] VITALS: BP 161/60; PULSE 94; RESP 16; TEMP 98.1; O2SAT 100
--- NOTE | 2016-12-09 23:51 | ED PDOC ---
Lower Extremity Pain/Injury Time Seen by Provider: 12/09/16 23:19 Chief Complaint (Nursing): Lower Extremity Problem/Injury Chief Complaint (Provider): Lower Extremity Problem/Injury History Per: Patient History/Exam Limitations: no limitations Onset/Duration Of Symptoms: Days Current Symptoms Are (Timing): Still Present Additional Complaint(s): Renard Erickson is a 71 year old male, well known to ER staff, presents to the ER for evaluation of left lower extremity pain. He states that he fell 2 days ago at the gym and bruised his left buttock. Patient reports that he has an appointment with a inspector and mender tomorrow for chronic ankle pain, but decided to come to the ER for evaluation. He denies any other symptoms. No chest pain or shortness of breath. Of note, patient has grandiose delusions of running for mayor and being friends with Gilbert and Holly Diaz. - Hip Description Of Injury: Fell Past Medical History Reviewed: Historical Data, Nursing Documentation, Vital Signs Vital Signs: Last Vital Signs Temp 98.1 F 12/09/16 23:01 Pulse 94 H 12/09/16 23:01 Resp 16 12/09/16 23:01 BP 161/60 H 12/09/16 23:01 Pulse Ox 100 12/09/16 23:01 - Medical History PMH: Depression, HTN Denies: Diabetes, Hepatitis, HIV, Chronic Kidney Disease, Seizures, Sexually Transmitted Disease - Family History Family History: States: Unknown Family Hx - Home Medications Home Medications: Ambulatory Orders Medication Instructions Recorded No Known Home Med 11/22/16 - Allergies Allergies/Adverse Reactions: Allergies Allergy/AdvReac Type Severity Reaction Status Date / Time No Known Allergies Allergy Verified 12/09/16 23:00 Review of Systems Cardiovascular: Negative for: Chest Pain Respiratory: Negative for: Shortness of Breath Musculoskeletal: Positive for: Leg Pain Physical Exam - Physical Exam Appears: Positive for: Non-toxic, No Acute Distress Head Exam: Positive for: ATRAUMATIC, NORMOCEPHALIC Skin: Positive for: Normal Color, Warm, Dry Eye Exam: Positive for: Normal appearance, EOMI, PERRL Neck: Positive for: Normal, Painless ROM, Supple Cardiovascular/Chest: Positive for: Regular Rate, Rhythm. Negative for: Murmur Respiratory: Positive for: Normal Breath Sounds. Negative for: Respiratory Distress Gastrointestinal/Abdominal: Positive for: Normal Exam, Soft. Negative for: Tenderness Back: Positive for: Normal Inspection. Negative for: L CVA Tenderness, R CVA Tenderness, Other (Midline tenderness) Extremity: Positive for: Normal ROM, Pedal Edema (non-pitting), Swelling (Left lower extremity ), Other (No redness, No erythema, Negative Bulmaro's, Healing ecchymosis to left buttock, no tenderness at hip joint) Neurologic/Psych: Positive for: Alert, Oriented. Negative for: Motor/Sensory Deficits - ECG O2 Sat by Pulse Oximetry: 100 Medical Decision Making Medical Decision Making: Impression: Chronic swelling rule out DVT Plan: Ibuprofen 600 mg PO Xray left ankle Venous Duplex left lower extremity US Duplex Left Lower Extremity Veins: FINDINGS: Deep veins: Unremarkable. No DVT in the visualized common femoral, femoral, proximal deep femoral or popliteal veins. The veins demonstrate normal color flow, are normally compressible, with normal phasic flow and/or augmentation response. Superficial veins: Unremarkable. No thrombus in the visualized great saphenous vein. Soft tissues: Subcutaneous edema in the left calf and ankle. There is a 4.2 x 0.7 x 2.8 cm left popliteal fossa cyst. IMPRESSION: 1. No evidence of left lower extremity DVT. Subcutaneous edema. 2. There is a 4.2 x 0.7 x 2.8 cm left popliteal fossa cyst. 230: Pt. feeling better after NSAID. Told to f/u w/ podiatry tomorrow. Will d/ c home. Scribe Attestation: Documented by Fritz Willis, acting as a scribe for Jono Madera MD. Provider Scribe Attestation: All medical record entries made by the Scribe were at my direction and personally dictated by me. I have reviewed the chart and agree that the record accurately reflects my personal performance of the history, physical exam, medical decision making, and the department course for this patient. I have also personally directed, reviewed, and agree with the discharge instructions and disposition. Disposition - Clinical Impression Clinical Impression: Ankle pain - Patient ED Disposition Is Patient to be Admitted: No - Disposition Referrals: [facility] [Outside] Disposition: Routine/Home Disposition Time: 02:31 Condition: STABLE Instructions: Leg Edema (ED) Forms: [employer] (Armenian)
--- NOTE | 2016-12-10 10:46 | US ---
HISTORY: r/o dvt . PRIORS: None. FINDINGS: 2-D, color and duplex Doppler analysis of the lower extremity venous circulation using routine protocol from the femoral veins through the popliteal veins. Venous compressibility: Normal. Flow and augmentation patterns: Normal. Visualized veins upper third of calf: Normal. Lind cyst: Popliteal fossa cysts measures 2.8 x 4.2 x 0.7 cm IMPRESSION: No sonographic or Doppler evidence for DVT in left lower extremity. Incidental finding(s): Small-moderate size Lind's cyst.
--- NOTE | 2016-12-10 16:29 | RAD ---
PROCEDURE: Left Ankle Radiographs. HISTORY: r/o fracture COMPARISON: Radiographs of left ankle 07/03/2016. FINDINGS: BONES: Normal. No fracture. JOINTS: Normal. No osteoarthritis. Ankle mortise maintained. Talar dome intact SOFT TISSUES: Soft tissue edema is seen at the medial distal leg and ankle soft tissues greater than lateral soft tissues. No retained radiodense foreign body or emphysema soft tissue changes identified. OTHER FINDINGS: None. IMPRESSION: No acute fracture or dislocation. Soft tissue edema at the distal leg and ankle soft tissues is diffusely noted more so medially than laterally, potentially reflecting posttraumatic cellulitis though other etiologies are possible.
== END 2016-12-10 06:48 | disposition home or self-care (01) ==
LOC: H.ER 22:54
DX: M25.572 Pain in left ankle and joints of left foot (principal); I10 Essential (primary) hypertension

== ENCOUNTER 2016-12-19 12:21 | Emergency (ER) | payer MEDICARE ==
[2016-12-19 12:21] VITALS: BMI 27.9
== END 2016-12-19 12:51 | disposition left against medical advice (07) ==
LOC: CANPREER → H.ER 12:21
DX: Z02.89 Encounter for other administrative examinations (principal)

== ENCOUNTER 2016-12-22 04:45 | Emergency (ER) | payer MEDICARE ==
[2016-12-22 04:45] VITALS: BMI 27.9
[2016-12-22 05:00] VITALS: RESP 18
--- NOTE | 2016-12-22 05:46 | ED PDOC ---
HPI: CCC, URI, Sore Throat Time Seen by Provider: 12/22/16 05:06 Chief Complaint (Nursing): Cough, Cold, Congestion Chief Complaint (Provider): Cough, Cold, Congestion History Per: Patient History/Exam Limitations: no limitations Onset/Duration Of Symptoms: Days (x2) Current Symptoms Are (Timing): Still Present Associated Symptoms: Cough, Nasal Congestion Additional Complaint(s): Renard is a 71 y/o male who presents to the ED complaining of cough and congestion for the past 2 days. Denies any associated fever, chest pain, or difficulty breathing. Patient complains his voice is becoming raspy. He states he was in the street for a few days because he couldnt get into a gym, and has a concert this morning in [employer]. PMD: Unknown Past Medical History Reviewed: Historical Data, Nursing Documentation, Vital Signs Vital Signs: Last Vital Signs Temp 99.7 F H 12/22/16 04:58 Pulse 91 H 12/22/16 04:58 Resp 18 12/22/16 04:58 BP 146/58 L 12/22/16 04:58 Pulse Ox 99 12/22/16 05:48 - Medical History PMH: Depression, HTN Denies: Diabetes, Hepatitis, HIV, Chronic Kidney Disease, Seizures, Sexually Transmitted Disease - Surgical History Surgical History: No Surg Hx - Family History Family History: States: Unknown Family Hx - Home Medications Home Medications: Ambulatory Orders Medication Instructions Recorded Albuterol HFA [Ventolin HFA 90 2 puff IH [id number] #1 inh 12/22/16 mcg/actuation (8 g)] Azithromycin [Z-Hemant] 250 mg PO ASDIR #6 tab 12/22/16 - Allergies Allergies/Adverse Reactions: Allergies Allergy/AdvReac Type Severity Reaction Status Date / Time No Known Allergies Allergy Verified 12/22/16 04:57 Review of Systems ROS Statement: Except As Marked, All Systems Reviewed And Found Negative Constitutional: Negative for: Fever ENT: Positive for: Nose Congestion, Other (Hoarse voice) Cardiovascular: Negative for: Chest Pain Respiratory: Positive for: Cough. Negative for: Shortness of Breath Physical Exam - Reviewed Nursing Documentation Reviewed: Yes Vital Signs Reviewed: Yes - Physical Exam Appears: Positive for: Well, Non-toxic, No Acute Distress Head Exam: Positive for: ATRAUMATIC, NORMAL INSPECTION, NORMOCEPHALIC Skin: Positive for: Normal Color, Warm, Dry Eye Exam: Positive for: EOMI, Normal appearance, PERRL Neck: Positive for: Normal, Supple Cardiovascular/Chest: Positive for: Regular Rate, Rhythm. Negative for: Murmur Respiratory: Positive for: Normal Breath Sounds. Negative for: Respiratory Distress Gastrointestinal/Abdominal: Positive for: Normal Exam, Soft. Negative for: Tenderness Extremity: Positive for: Normal ROM. Negative for: Pedal Edema, Deformity Neurologic/Psych: Positive for: Alert, Oriented - ECG O2 Sat by Pulse Oximetry: 99 (RA) Pulse Ox Interpretation: Normal - Radiology X-Ray: Interpreted by Me, Viewed By Me X-Ray Interpretation: No Acute Disease Medical Decision Making Medical Decision Making: Initial Impression: Cough and congestion. Rule out pneumonia, possibly bronchitis Time: 5:29 Initial Plan: --Chest x-ray 2 views Scribe Attestation: Documented by Lety Timmons, acting as a scribe for Shayy Avalos MD Provider Scribe Attestation: All medical record entries made by the Scribe were at my direction and personally dictated by me. I have reviewed the chart and agree that the record accurately reflects my personal performance of the history, physical exam, medical decision making, and the department course for this patient. I have also personally directed, reviewed, and agree with the discharge instructions and disposition. Disposition - Clinical Impression Clinical Impression: Bronchitis - Patient ED Disposition Is Patient to be Admitted: No Doctor Will See Patient In The: Office Counseled Patient/Family Regarding: Studies Performed, Diagnosis, Need For Followup - Disposition Referrals: [facility] [Outside] Disposition: Routine/Home Disposition Time: 06:58 Condition: GOOD Additional Instructions: Follow up with your PCP in 2-3 days. Prescriptions: Albuterol HFA [Ventolin HFA 90 mcg/actuation (8 g)] 2 puff IH [id number] #1 inh Azithromycin [Z-Hemant] 250 mg PO ASDIR #6 tab Instructions: Acute Bronchitis (ED)
[2016-12-22 07:10] VITALS: BP 135/80; PULSE 75; TEMP 98.1; O2SAT 100
--- NOTE | 2016-12-22 09:31 | RAD ---
HISTORY: cough congestion COMPARISON: 2009 TECHNIQUE: Chest PA and lateral FINDINGS: LUNGS: No active pulmonary disease. PLEURA: Stable mild blunting of the right costophrenic angle is noted which may suggest a small amount of scar. CARDIOVASCULAR: Heart is top normal in size. Aorta shows uncoiling. OSSEOUS STRUCTURES: No significant abnormalities. VISUALIZED UPPER ABDOMEN: Normal. OTHER FINDINGS: None. IMPRESSION: No active disease.
== END 2016-12-22 07:09 | disposition home or self-care (01) ==
LOC: H.ER 04:45
DX: J20.9 Acute bronchitis, unspecified (principal)

== ENCOUNTER 2017-01-19 10:18 | Emergency (ER) | payer MEDICARE ==
[2017-01-19 10:19] VITALS: BMI 27.9
--- NOTE | 2017-01-19 10:59 | ED PDOC ---
Lower Extremity Pain/Injury Time Seen by Provider: 01/19/17 10:23 Chief Complaint (Nursing): Lower Extremity Problem/Injury Chief Complaint (Provider): Left Knee Pain History Per: Patient History/Exam Limitations: no limitations Onset/Duration Of Symptoms: Hrs (x2) Current Symptoms Are (Timing): Still Present Additional Complaint(s): Renard Erickson is a 71 year old male that presents to the ED with a chief complaint of left knee pain that began after he slipped and fell two hours prior to arrival in ED. Patient reports that he twisted his left knee, and that the area is currently swollen and painful. Patient is experiencing pain on ambulation. Past Medical History Reviewed: Historical Data, Nursing Documentation, Vital Signs Vital Signs: Last Vital Signs Temp Pulse Resp BP 128/67 01/19/17 10:26 Pulse Ox - Medical History PMH: Depression, HTN Denies: Diabetes, Hepatitis, HIV, Chronic Kidney Disease, Seizures, Sexually Transmitted Disease - Family History Family History: States: Unknown Family Hx - Home Medications Home Medications: Ambulatory Orders Medication Instructions Recorded Albuterol HFA [Ventolin HFA 90 2 puff IH [id number] #1 inh 12/22/16 mcg/actuation (8 g)] Azithromycin [Z-Hemant] 250 mg PO ASDIR #6 tab 12/22/16 Cyclobenzaprine [Cyclobenzaprine 10 mg PO TID #20 tab 12/30/16 HCl] Methylprednisolone [Medrol Dose 4 mg PO DAILY #21 mg 12/30/16 Pack (21 tabs)] Naproxen [Naprosyn] 500 mg PO Q12H #20 tab 01/19/17 - Allergies Allergies/Adverse Reactions: Allergies Allergy/AdvReac Type Severity Reaction Status Date / Time No Known Allergies Allergy Verified 01/19/17 10:27 Review of Systems Musculoskeletal: Positive for: Leg Pain (left knee pain) Physical Exam - Reviewed Nursing Documentation Reviewed: Yes Vital Signs Reviewed: Yes - Physical Exam Appears: Positive for: Non-toxic, No Acute Distress Head Exam: Positive for: ATRAUMATIC, NORMOCEPHALIC Skin: Positive for: Normal Color, Warm Eye Exam: Positive for: Normal appearance, EOMI, PERRL Cardiovascular/Chest: Positive for: Regular Rate, Rhythm. Negative for: Murmur Respiratory: Positive for: Normal Breath Sounds. Negative for: Wheezing Pulses-Dorsalis Pedis (L): 2+ Pulses-Dorsalis Pedis (R): 2+ Pulses-Post. Tibialis (L): 2+ Pulses-Post. Tibialis (R): 2+ Extremity: Positive for: Tenderness (Mild TTP medially left knee), Swelling ( Mild swelling medially to left knee). Negative for: Normal ROM (Limited ROM left knee), Other (No instability, no ecchymosis) Neurologic/Psych: Positive for: Alert, Oriented. Negative for: Motor/Sensory Deficits Medical Decision Making Medical Decision Making: Impression: Left Knee Injury Plan: * X-Ray Left Knee * Reevaluation Scribe Attestation: Documented by Angelika Gresham, acting as a scribe for Richardson Og MD. Provider Scribe Attestation: All medical record entries made by the Scribe were at my direction and personally dictated by me. I have reviewed the chart and agree that the record accurately reflects my personal performance of the history, physical exam, medical decision making, and the department course for this patient. I have also personally directed, reviewed, and agree with the discharge instructions and disposition. Disposition - Clinical Impression Clinical Impression: Knee sprain - Patient ED Disposition Is Patient to be Admitted: No Counseled Patient/Family Regarding: Studies Performed, Diagnosis, Need For Followup, Rx Given - Disposition Referrals: Wild Montes De Oca III, MD [Staff Provider] - Disposition: Routine/Home Disposition Time: 11:42 Condition: FAIR Prescriptions: Naproxen [Naprosyn] 500 mg PO Q12H #20 tab Instructions: Knee Sprain (ED) Forms: [employer] (Faroese)
--- NOTE | 2017-01-19 12:07 | RAD ---
PROCEDURE: Left Knee Radiographs. HISTORY: Pain. COMPARISON: None. FINDINGS: BONES: Normal. No fracture. JOINTS: There is mild degenerative osteoarthrosis in the medial compartment with mild reduced joint space and marginal spurring. Bone alignment and mineralization are normal. There is no acute fracture or bone destruction. JOINT EFFUSION: There is a small suprapatellar joint effusion. OTHER FINDINGS: Atherosclerotic vascular calcifications are present. IMPRESSION: Mild degenerative osteoarthrosis in the medial compartment. Small suprapatellar joint effusion.
[2017-01-19 12:20] VITALS: BP 145/76; PULSE 76; RESP 20; TEMP 98.4; O2SAT 98
== END 2017-01-19 12:57 | disposition home or self-care (01) ==
LOC: H.ER 10:18
DX: S89.92XA Unspecified injury of left lower leg, initial encounter (principal); W19.XXXA Unspecified fall, initial encounter; Y92.89 Other specified places as the place of occurrence of the external cause; F32.9 Major depressive disorder, single episode, unspecified; I10 Essential (primary) hypertension; M17.12 Unilateral primary osteoarthritis, left knee
CPT/HCPCS: 73562; 99284; L1830

== ENCOUNTER 2017-01-19 20:18 | Emergency (ER) | payer MEDICARE ==
[2017-01-19 20:18] VITALS: BMI 27.9
[2017-01-19 20:54] VITALS: BP 140/67; PULSE 107; RESP 20; TEMP 98.9; O2SAT 95
--- NOTE | 2017-01-19 20:58 | ED PDOC ---
Lower Extremity Pain/Injury Time Seen by Provider: 01/19/17 20:51 Chief Complaint (Nursing): Lower Extremity Problem/Injury Chief Complaint (Provider): LEFT knee pain History Per: Patient History/Exam Limitations: no limitations Onset/Duration Of Symptoms: Days (1), Sudden Onset Current Symptoms Are (Timing): Still Present Additional Complaint(s): Sudden onset LEFT knee pain s/p trip and fall. Evaluated earlier today and discharged and given brace and crutches. Pt reports he wasn't able to get into the retirement which is why he presents in the ER again. Also did not get medications for pain. And he left his brace in a locker. Past Medical History Reviewed: Historical Data, Nursing Documentation, Vital Signs Vital Signs: Last Vital Signs Temp 98.9 F 01/19/17 20:53 Pulse 107 H 01/19/17 20:53 Resp 20 01/19/17 20:53 BP 140/67 01/19/17 20:53 Pulse Ox 95 01/19/17 20:53 - Medical History PMH: Depression, HTN Denies: Diabetes, Hepatitis, HIV, Chronic Kidney Disease, Seizures, Sexually Transmitted Disease - Family History Family History: States: Unknown Family Hx - Home Medications Home Medications: Ambulatory Orders Medication Instructions Recorded Albuterol HFA [Ventolin HFA 90 2 puff IH [id number] #1 inh 12/22/16 mcg/actuation (8 g)] Azithromycin [Z-Hemant] 250 mg PO ASDIR #6 tab 12/22/16 Cyclobenzaprine [Cyclobenzaprine 10 mg PO TID #20 tab 12/30/16 HCl] Methylprednisolone [Medrol Dose 4 mg PO DAILY #21 mg 12/30/16 Pack (21 tabs)] Naproxen [Naprosyn] 500 mg PO Q12H #20 tab 01/19/17 - Allergies Allergies/Adverse Reactions: Allergies Allergy/AdvReac Type Severity Reaction Status Date / Time No Known Allergies Allergy Verified 01/19/17 10:27 Review of Systems ROS Statement: Except As Marked, All Systems Reviewed And Found Negative (and as per HPI) Musculoskeletal: Positive for: Leg Pain Neurological: Negative for: Numbness Physical Exam - Reviewed Nursing Documentation Reviewed: Yes Vital Signs Reviewed: Yes - Physical Exam Appears: Positive for: Non-toxic, No Acute Distress (sleeping comfortably in stretcher on my arrival to room) Head Exam: Positive for: ATRAUMATIC, NORMOCEPHALIC Pulses-Post. Tibialis (L): 2+ Extremity: Positive for: Normal ROM, Swelling (LEFT knee: Mild diffuse edema, 4+ /5 flex/ext limited due to pain, light touch intact, neurovascularly intact distally). Negative for: Deformity Neurologic/Psych: Positive for: Oriented. Negative for: Motor/Sensory Deficits - ECG O2 Sat by Pulse Oximetry: 95 Disposition - Clinical Impression Clinical Impression: Knee injury - Disposition Referrals: Wild Montes De Oca III, MD [Staff Provider] - Disposition: Routine/Home Disposition Time: 21:10 Condition: STABLE Instructions: Knee Sprain (ED), RICE Therapy (ED)
== END 2017-01-19 23:34 | disposition home or self-care (01) ==
LOC: H.ER 20:18
DX: M25.562 Pain in left knee (principal); F32.9 Major depressive disorder, single episode, unspecified; I10 Essential (primary) hypertension

== ENCOUNTER 2017-02-03 03:19 | Emergency (ER) | payer MEDICARE ==
[2017-02-03 03:31] VITALS: BMI 25.9
[2017-02-03 03:33] VITALS: BP 174/94; PULSE 90; TEMP 97.6; O2SAT 100
[2017-02-03 04:00] VITALS: RESP 18
--- NOTE | 2017-02-03 04:27 | ED PDOC ---
HPI: Back Time Seen by Provider: 02/03/17 04:00 Chief Complaint (Nursing): Medical Clearance Chief Complaint (Provider): Neck Pain History Per: Patient Additional Complaint(s): 71 y/o male ambulates to ED for eval of neck pain. Patient denies head injury, LOC, dizziness, vision changes, extremity numbness/weakness. Last Tetanus unknown. 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, generally presents to the same Past Medical History Reviewed: Nursing Documentation, Vital Signs Vital Signs: Last Vital Signs Temp 97.6 F 02/03/17 03:58 Pulse 90 02/03/17 03:58 Resp 18 02/03/17 03:58 BP 174/94 H 02/03/17 03:58 Pulse Ox 100 02/03/17 03:58 - Medical History PMH: Depression, HTN Denies: Diabetes, Hepatitis, HIV, Chronic Kidney Disease, Seizures, Sexually Transmitted Disease - Surgical History Surgical History: No Surg Hx - Family History Family History: States: Unknown Family Hx - Living Arrangements Living Arrangements: With Family - Social History Current smoker - smoking cessation education provided: No Alcohol: None Drugs: Denies - Home Medications Home Medications: Ambulatory Orders Medication Instructions Recorded Albuterol HFA [Ventolin HFA 90 2 puff IH [id number] #1 inh 12/22/16 mcg/actuation (8 g)] Azithromycin [Z-Hemant] 250 mg PO ASDIR #6 tab 12/22/16 Cyclobenzaprine [Cyclobenzaprine 10 mg PO TID #20 tab 12/30/16 HCl] Methylprednisolone [Medrol Dose 4 mg PO DAILY #21 mg 12/30/16 Pack (21 tabs)] Naproxen [Naprosyn] 500 mg PO Q12H #20 tab 01/19/17 - Allergies Allergies/Adverse Reactions: Allergies Allergy/AdvReac Type Severity Reaction Status Date / Time No Known Allergies Allergy Verified 01/19/17 10:27 Review of Systems ROS Statement: Except As Marked, All Systems Reviewed And Found Negative Musculoskeletal: Positive for: Other (neck pain) Physical Exam - Reviewed Nursing Documentation Reviewed: Yes Vital Signs Reviewed: Yes - Physical Exam Appears: Positive for: Well, Non-toxic, No Acute Distress Head Exam: Positive for: ATRAUMATIC, NORMAL INSPECTION, NORMOCEPHALIC Skin: Positive for: Normal Color, Warm, DRY Eye Exam: Positive for: EOMI, Normal appearance, PERRL ENT: Positive for: Normal ENT Inspection Neck: Positive for: Normal, Painless ROM Cardiovascular/Chest: Positive for: Regular Rate, Rhythm Respiratory: Positive for: CNT, Normal Breath Sounds Gastrointestinal/Abdominal: Positive for: Normal Exam, Bowel Sounds, Soft Back: Positive for: Normal Inspection Extremity: Positive for: Normal ROM Neurologic/Psych: Positive for: Alert, Oriented - ECG O2 Sat by Pulse Oximetry: 100 Disposition - Clinical Impression Clinical Impression: Neck pain - Patient ED Disposition Is Patient to be Admitted: No - Disposition Disposition: Routine/Home Disposition Time: 04:30 Condition: STABLE - POA Present On Arrival: None
== END 2017-02-03 06:13 | disposition home or self-care (01) ==
LOC: H.ER 03:19
DX: M54.2 Cervicalgia (principal); F32.9 Major depressive disorder, single episode, unspecified; I10 Essential (primary) hypertension

== ENCOUNTER 2017-04-04 05:37 | Emergency (ER) | payer MEDICARE ==
[2017-04-04 05:37] VITALS: BMI 25.9
[2017-04-04 06:00] VITALS: TEMP 97.5; O2SAT 98
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
--- NOTE | 2017-04-04 08:00 | ED PDOC ---
- ECG O2 Sat by Pulse Oximetry: 98 (RA) Medical Decision Making Medical Decision Makin:00 Patient signed out to the provider by Dr. Jono Madera pending x-ray of right knee and right wrist. Reassess -- Scribe Attestation: Documented by Madan Jones acting as a scribe for Carolann Dominguez MD. 8.30a - xrays reviewed. no obvious fractures in either. Patient is standing, steady. will discharge. Disposition Doctor Will See Patient In The: Office Counseled Patient/Family Regarding: Diagnosis, Need For Followup - Clinical Impression Clinical Impression: Wrist pain, Knee pain, chronic - POA Present On Arrival: Falls Or Trauma - Disposition Disposition: Routine/Home Disposition Time: 08:45 Condition: STABLE Additional Instructions: Please see your primary care physician for physical therapy. Instructions: Contusion in Adults (ED) Forms: [employer] ([place]ese)
[2017-04-04 09:42] VITALS: BP 149/90; PULSE 72; RESP 18
--- NOTE | 2017-04-04 12:47 | RAD ---
PROCEDURE: Left Knee Radiographs. HISTORY: Pain. COMPARISON: Left knee radiographs 01/19/2017. FINDINGS: BONES: No acute fracture is identified. Calcifications appears to developing within the distal left thigh posteromedial at and somewhat lateral to the mid to distal diaphysis of the left femur. No erosive changes are seen related to the cortex of the visualized distal left femur. Periosteal reaction is not completely excluded. Although this finding may reflect calcification within muscle and not related to the periosteum, consideration of follow-up CT or MRI of the mid to distal left thigh is advised to exclude potential periosteal mass. This appears to be separate from vascular calcifications in the plane of the distal left superficial femoral artery as well as the popliteal artery. JOINTS: Degenerative joint changes are stable including patellofemoral and medial compartment joint space narrowing and patellofemoral limited osteophyte development. JOINT EFFUSION: A small suprapatellar bursa effusion is suggested. OTHER FINDINGS: See bone section above. IMPRESSION: No acute fracture dislocation identified. Small suprapatellar bursa effusion is identified as well as stable degenerative joint disease. Periosteal reaction versus local soft tissue ossification has developed close to the mid to distal diaphysis for which follow-up CT or MRI is advised for additional characterization. Findings discussed with ER physician golf player assistant Rudolph 04/04/2017 as 12:45 p.m. with written down and read back verification.
--- NOTE | 2017-04-04 12:51 | RAD ---
PROCEDURE: Right Wrist Radiographs. HISTORY: s/p fall, swelling COMPARISON: Right hand radiographs 08/03/2016. FINDINGS: BONES: No acute fracture or destructive bony lesion identified. An ununited navicular fracture is appreciated, unchanged in appearance compared to prior right hand radiograph 08/03/2016. JOINTS: Degenerative cortical sclerosis appreciate throughout the wrist joints diffusely and pattern compatible with moderate degenerative joint disease. No subluxation or dislocation grossly evident. SOFT TISSUES: Moderate soft tissue edema is seen greater the dorsal than volar soft tissues extending into the volar hand soft tissues as well. No emphysema soft tissue changes of retained radiodense foreign body identified. OTHER FINDINGS: None. IMPRESSION: No acute fracture or dislocation right wrist. 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 Degenerative joint disease as discussed above. Moderate soft tissue edema noted, dorsal greater than volar.
== END 2017-04-04 09:30 | disposition home or self-care (01) ==
LOC: H.ER 05:37
DX: M25.532 Pain in left wrist (principal); M25.531 Pain in right wrist; M25.562 Pain in left knee; M25.561 Pain in right knee; I10 Essential (primary) hypertension; Z86.59 Personal history of other mental and behavioral disorders; M17.12 Unilateral primary osteoarthritis, left knee; Y04.2XXA Assault by strike against or bumped into by another person, initial encounter

== ENCOUNTER 2017-04-06 01:56 | Emergency (ER) | payer MEDICARE ==
[2017-04-06 01:56] VITALS: BMI 25.9
[2017-04-06 02:18] VITALS: BP 160/95; PULSE 105; RESP 16; TEMP 98.1; O2SAT 99
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
--- NOTE | 2017-04-06 09:04 | RAD ---
PROCEDURE: Left Foot Radiographs. HISTORY: pain COMPARISON: Left foot radiographs dated 07/03/2016. FINDINGS: BONES: No acute fracture. Bipartite sesamoids. JOINTS: Mildly narrowed. SOFT TISSUES: Normal. OTHER FINDINGS: Inferior plantar calcaneal spur. IMPRESSION: No demonstrated fracture or dislocation.
--- NOTE | 2017-04-06 09:05 | RAD ---
PROCEDURE: Left Ankle Radiographs. HISTORY: pain COMPARISON: Left ankle radiographs dated 12/10/2016 FINDINGS: BONES: No acute fracture. JOINTS: Ankle mortise maintained. Talar dome intact SOFT TISSUES: Normal. OTHER FINDINGS: Inferior plantar calcaneal spur. IMPRESSION: No demonstrated fracture or dislocation.
== END 2017-04-06 05:09 | disposition home or self-care (01) ==
LOC: H.ER 01:56
DX: S93.402A Sprain of unspecified ligament of left ankle, initial encounter (principal); Y04.8XXA Assault by other bodily force, initial encounter; Y92.512 Supermarket, store or market as the place of occurrence of the external cause

== ENCOUNTER 2017-04-09 06:36 | Emergency (ER) | payer MEDICARE ==
[2017-04-09 06:36] VITALS: BMI 25.9
[2017-04-09 06:54] VITALS: BP 148/89; PULSE 85; RESP 16; TEMP 98.7; O2SAT 99
--- NOTE | 2017-04-09 08:09 | ED PDOC ---
Lower Extremity Pain/Injury Time Seen by Provider: 04/09/17 07:12 Chief Complaint (Nursing): Lower Extremity Problem/Injury Chief Complaint (Provider): Left Leg Swelling History Per: Patient History/Exam Limitations: no limitations Onset/Duration Of Symptoms: Hrs (x 2) Current Symptoms Are (Timing): Better Additional Complaint(s): Renard is a 71 y/o male who presents to the ED c/o left leg swelling after slipping on ice and falling twice. He states that when he fell is leg swelled and he couldn't get up, but later ambulated here. He has no other medical complaints. Patient is well known to this provider and ED. PMD: None Provided Past Medical History Reviewed: Historical Data, Nursing Documentation, Vital Signs Vital Signs: Last Vital Signs Temp 98.7 F 04/09/17 06:51 Pulse 85 04/09/17 06:51 Resp 16 04/09/17 06:51 BP 148/89 04/09/17 06:51 Pulse Ox 99 04/09/17 06:51 - Medical History PMH: Depression, HTN Denies: Diabetes, Hepatitis, HIV, Chronic Kidney Disease, Seizures, Sexually Transmitted Disease - Family History Family History: States: Unknown Family Hx - Social History Alcohol: > 2 Drinks/Day - Home Medications Home Medications: Ambulatory Orders Medication Instructions Recorded Albuterol HFA [Ventolin HFA 90 2 puff IH [id number] #1 inh 12/22/16 mcg/actuation (8 g)] Azithromycin [Z-Hemant] 250 mg PO ASDIR #6 tab 12/22/16 Cyclobenzaprine [Cyclobenzaprine 10 mg PO TID #20 tab 12/30/16 HCl] Methylprednisolone [Medrol Dose 4 mg PO DAILY #21 mg 12/30/16 Pack (21 tabs)] Naproxen [Naprosyn] 500 mg PO Q12H #20 tab 01/19/17 Ibuprofen [Motrin] 600 mg PO Q6 #20 tab 02/03/17 - Allergies Allergies/Adverse Reactions: Allergies Allergy/AdvReac Type Severity Reaction Status Date / Time No Known Allergies Allergy Verified 04/09/17 06:51 Review of Systems ROS Statement: Except As Marked, All Systems Reviewed And Found Negative Musculoskeletal: Positive for: Leg Pain (swelling) Physical Exam - Reviewed Nursing Documentation Reviewed: Yes Vital Signs Reviewed: Yes - Physical Exam Appears: Positive for: Well, Non-toxic, No Acute Distress Skin: Positive for: Normal Color, Warm, DRY Extremity: Positive for: Normal ROM, Other (full strength). Negative for: Tenderness, Calf Tenderness, Deformity, Swelling - ECG O2 Sat by Pulse Oximetry: 99 (RA) Pulse Ox Interpretation: Normal Medical Decision Making Medical Decision Making: Time: 7:30 Initial Impression: Resolved leg swelling Scribe~Attestation: Documented by Anthony Souza, acting as a scribe for Carolann Dominguez. Provider Scribe~Attestation: All medical record entries made by the Scribe were at my direction and personally dictated by me. I have reviewed the chart and agree that the record accurately reflects my personal performance of the history, physical exam, medical decision making, and the department course for this patient. I have also personally directed, reviewed, and agree with the discharge instructions and disposition. Disposition - Clinical Impression Clinical Impression: Chronic leg pain - Patient ED Disposition Is Patient to be Admitted: No Doctor Will See Patient In The: Office Counseled Patient/Family Regarding: Diagnosis, Need For Followup - Disposition Referrals: [facility] [Outside] [facility] [Outside] [facility] [Outside] Disposition: Routine/Home Disposition Time: 09:00 Condition: STABLE Instructions: Leg Pain (ED) Forms: [facility] (Occitan) - POA Present On Arrival: Falls Or Trauma
== END 2017-04-09 09:53 | disposition home or self-care (01) ==
LOC: H.ER 06:36
DX: M79.605 Pain in left leg (principal); G89.29 Other chronic pain; F32.9 Major depressive disorder, single episode, unspecified; I10 Essential (primary) hypertension

== ENCOUNTER 2017-05-05 19:28 | Emergency (ER) | payer MEDICARE ==
[2017-05-05 19:28] VITALS: BMI 25.9
[2017-05-05 19:34] VITALS: BP 160/89; PULSE 89; RESP 16; TEMP 98.3; O2SAT 98
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
[2017-05-05 20:36] LABS: BASO % 0.4 % (0.0-2.0); EOS # 0.1 K/uL (0.0-0.7); EOS % 2.1 % (0.0-4.0); HEMOGLOBIN 12.2 g/dL (12.0-18.0); LYMPH # 3.1 K/uL (1.0-4.3); LYMPH % 44.1 % (20.0-40.0); MEAN CORPUSCULAR HEMOGLOBIN 27.3 pg (27.0-31.0); MEAN CORPUSCULAR HGB CONC 33.2 g/dL (33.0-37.0); MEAN PLATELET VOLUME 8.6 fl (7.2-11.7); MONO # 0.6 K/uL (0.0-0.8); MONO % 8.2 % (0.0-10.0); NEUT # 3.2 K/uL (1.8-7.0); NEUT % 45.2 % (50.0-75.0); NRBC % 0.1 % (0.0-0.0); RBC 4.48 Mil/uL (4.40-5.90); RED CELL DISTRIBUTION WIDTH 16.1 % (11.5-14.5)
[2017-05-05 20:51] LABS: ALB/GLOB RATIO 1.3 (1.0-2.1); ALBUMIN 3.9 g/dL (3.5-5.0); ALT/SGPT 30 U/L (21-72); AST/SGOT 30 U/L (17-59); BLOOD UREA NITROGEN 15 mg/dl (9-20); CALCIUM 8.9 mg/dL (8.4-10.2); GFR AFRICAN-AMERICAN > 60; GFR NON-AFRICAN AMERICAN > 60
== END 2017-05-06 00:28 | disposition home or self-care (01) ==
LOC: H.ER 19:28
DX: F10.129 Alcohol abuse with intoxication, unspecified (principal); F32.9 Major depressive disorder, single episode, unspecified; I10 Essential (primary) hypertension
CPT/HCPCS: 80053; 82948; 85025; 99282; G0480

== ENCOUNTER 2017-05-09 03:05 | Emergency (ER) | payer MEDICARE ==
[2017-05-09 03:05] VITALS: BMI 25.9
[2017-05-09 03:22] VITALS: BP 152/99; PULSE 89; RESP 16; TEMP 98.9; O2SAT 100
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
== END 2017-05-09 05:22 | disposition home or self-care (01) ==
LOC: H.ER 03:05
DX: M79.605 Pain in left leg (principal); I10 Essential (primary) hypertension

== ENCOUNTER 2017-07-05 02:47 | Emergency (ER) | payer MEDICARE ==
[2017-07-05 02:48] VITALS: BMI 25.9
[2017-07-05 02:59] VITALS: BP 149/84; PULSE 72; RESP 18; TEMP 97.7; O2SAT 97
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
== END 2017-07-05 05:56 | disposition home or self-care (01) ==
LOC: H.ER 02:47
DX: S16.1XXA Strain of muscle, fascia and tendon at neck level, initial encounter (principal); I10 Essential (primary) hypertension; Z86.59 Personal history of other mental and behavioral disorders

== ENCOUNTER 2017-07-25 03:02 | Emergency (ER) | payer MEDICARE ==
[2017-07-25 03:03] VITALS: BMI 25.9
[2017-07-25 03:09] VITALS: PULSE 90; RESP 16; TEMP 98; O2SAT 96
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
[2017-07-25 03:32] VITALS: BP 124/64
== END 2017-07-25 05:33 | disposition home or self-care (01) ==
LOC: H.ER 03:02
DX: Z00.00 Encounter for general adult medical examination without abnormal findings (principal)

== ENCOUNTER 2017-07-26 17:02 | Emergency (ER) | payer MEDICARE ==
[2017-07-26 17:02] VITALS: BMI 25.9
[2017-07-26 17:10] VITALS: BP 148/98; PULSE 102; RESP 20; TEMP 98.8; O2SAT 98
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
== END 2017-07-26 19:39 | disposition home or self-care (01) ==
LOC: H.ER 17:02
DX: F10.10 Alcohol abuse, uncomplicated (principal); F32.9 Major depressive disorder, single episode, unspecified; I10 Essential (primary) hypertension

== ENCOUNTER 2017-07-28 21:47 | Emergency (ER) | payer MEDICARE ==
[2017-07-28 21:59] VITALS: BMI 25.8
[2017-07-28 22:02] VITALS: BP 145/73; PULSE 77; RESP 16; TEMP 98.3; O2SAT 98
--- NOTE | 2017-07-28 22:57 | ED PDOC ---
Lower Extremity Pain/Injury Time Seen by Provider: 07/28/17 22:56 Chief Complaint (Nursing): Lower Extremity Problem/Injury Chief Complaint (Provider): right ankle pain History Per: Patient Additional Complaint(s): 71-year-old undomiciled male presents to emergency department with pain and swelling to right ankle. Patient states he walks frequently and developed swelling and pain today. Patient has not taken anything for pain. He denies fever or chills. Past Medical History Reviewed: Historical Data, Nursing Documentation, Vital Signs Vital Signs: Last Vital Signs Temp 98.3 F 07/28/17 21:58 Pulse 77 07/28/17 21:58 Resp 16 07/28/17 21:58 BP 145/73 07/28/17 21:58 Pulse Ox 98 07/28/17 21:58 - Medical History PMH: Depression, HTN - Family History Family History: States: No Known Family Hx - Living Arrangements Living Arrangements: Other (non-domiciled) - Social History Alcohol: > 2 Drinks/Day - Home Medications Home Medications: Ambulatory Orders Medication Instructions Recorded Albuterol HFA [Ventolin HFA 90 2 puff IH [id number] #1 inh 12/22/16 mcg/actuation (8 g)] Azithromycin [Z-Hemant] 250 mg PO ASDIR #6 tab 12/22/16 Cyclobenzaprine [Cyclobenzaprine 10 mg PO TID #20 tab 12/30/16 HCl] Methylprednisolone [Medrol Dose 4 mg PO DAILY #21 mg 12/30/16 Pack (21 tabs)] Naproxen [Naprosyn] 500 mg PO Q12H #20 tab 01/19/17 Ibuprofen [Motrin] 600 mg PO Q6 #20 tab 02/03/17 Ibuprofen [Motrin Tab] 600 mg PO Q6 #30 tab 05/09/17 Ibuprofen [Motrin Tab] 800 mg PO Q8 PRN #20 tab 07/28/17 - Allergies Allergies/Adverse Reactions: Allergies Allergy/AdvReac Type Severity Reaction Status Date / Time No Known Allergies Allergy Verified 07/28/17 21:58 Wells Criteria for PE - Wells Criteria for Pulmonary Embolism Clinical Signs and Symptoms of DVT: No P.E is #1 Diagnosis, or Equally Likely: No Heart Rate >100: No Immobilization at least 3 days;Surgery previous 4 weeks: No Previous, objectively diagnosed PE or DVT: No Hemoptysis: No Malignancy w/treatment within 6 months, or palliative: No Total Score: 0 Review of Systems ROS Statement: Except As Marked, All Systems Reviewed And Found Negative Constitutional: Negative for: Fever Musculoskeletal: Positive for: Other (right ankle pain) Physical Exam - Reviewed Nursing Documentation Reviewed: Yes Vital Signs Reviewed: Yes - Physical Exam Appears: Positive for: Well, Non-toxic, No Acute Distress Skin: Negative for: Rash Eye Exam: Positive for: Normal appearance Extremity: Positive for: Other (Swelling and tenderness with no erythema or warmth noted diffusely to right ankle region, no palpable bony deformity, nontender right foot) Neurologic/Psych: Positive for: Alert, Oriented - ECG O2 Sat by Pulse Oximetry: 98 Pulse Ox Interpretation: Normal - Other Rad right ankle x-ray X-Ray: Interpreted by Me, Viewed By Me X-Ray Interpretation: no fx, no dis Medical Decision Making Medical Decision Makin71 y/o male with right ankle pain, ambulatory into ED. Plan: X-ray right ankle PO motrin and tylenol Patient aware of x-ray results, all questions answered. Prescription for Motrin provided. Patient referred to podiatry clinic. Disposition - Clinical Impression Clinical Impression: Ankle pain - Patient ED Disposition Is Patient to be Admitted: No Counseled Patient/Family Regarding: Studies Performed, Diagnosis, Need For Followup, Rx Given - Disposition Referrals: Podiatry Clinic [Outside] Disposition: Routine/Home Disposition Time: 23:32 Condition: STABLE Additional Instructions: Ice, rest and elevate affected area. Take prescription meds as needed for pain. Follow-up with podiatry clinic. Prescriptions: Ibuprofen [Motrin Tab] 800 mg PO Q8 PRN #20 tab PRN Reason: Pain, Moderate (4-7) Instructions: Ankle Sprain (DC) Forms: [employer] (Polish)
--- NOTE | 2017-07-29 10:08 | RAD ---
PROCEDURE: Right Ankle Radiographs. HISTORY: pain COMPARISON: None FINDINGS: BONES: No acute fracture or destructive bony lesion identified. JOINTS: Ankle mortise is intact as well as the talar dome. Degenerative sclerosis appreciated at the articular surfaces of the tibiotalar and talocalcaneal joints. SOFT TISSUES: [id number] anterior and lateral ankle soft tissue edema noted. Vascular calcifications are identified anteriorly as well as posteriorly. OTHER FINDINGS: None. IMPRESSION: No acute fracture or dislocation. Degenerative changes appear mild.
== END 2017-07-29 00:11 | disposition home or self-care (01) ==
LOC: H.ER 21:47
DX: M25.571 Pain in right ankle and joints of right foot (principal)

== ENCOUNTER 2018-01-01 11:18 | Emergency (ER) | payer MEDICARE ==
[2018-01-01 11:21] VITALS: BMI 26.6
[2018-01-01 11:22] VITALS: RESP 18; TEMP 98.3
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
[2018-01-01 17:24] LABS: HEMOGLOBIN 14.5 g/dL (12.0-18.0); MEAN CELL VOLUME 85.6 fl (80.0-94.0); MEAN CORPUSCULAR HEMOGLOBIN 28.8 pg (27.0-31.0); MEAN CORPUSCULAR HGB CONC 33.6 g/dL (33.0-37.0); RBC 5.03 Mil/uL (4.40-5.90); RED CELL DISTRIBUTION WIDTH 14.2 % (11.5-14.5); WHITE BLOOD COUNT 5.6 K/uL (4.8-10.8)
[2018-01-01 17:36] LABS: ALB/GLOB RATIO 1.3 (1.0-2.1); ALBUMIN 4.3 g/dL (3.5-5.0); ALT/SGPT 45 U/L (21-72); AST/SGOT 39 U/L (17-59); BLOOD UREA NITROGEN 15 mg/dl (9-20); CALCIUM 9.6 mg/dL (8.4-10.2); GFR NON-AFRICAN AMERICAN > 60
[2018-01-01 18:16] VITALS: BP 175/90; PULSE 74; O2SAT 98
== END 2018-01-01 18:34 | disposition home or self-care (01) ==
LOC: H.ER 11:18
DX: F43.20 Adjustment disorder, unspecified (principal); F32.9 Major depressive disorder, single episode, unspecified; I10 Essential (primary) hypertension
CPT/HCPCS: 80053; 85027; 99282; G0480

== ENCOUNTER 2018-03-05 03:54 | Emergency (ER) | payer MEDICARE ==
[2018-03-05 03:54] VITALS: BMI 26.6
[2018-03-05 04:11] VITALS: BP 170/75; PULSE 62; RESP 18; TEMP 97.5; O2SAT 100
--- NOTE | 2018-03-05 04:18 | ED PDOC ---
HPI: CCC, URI, Sore Throat Time Seen by Provider: 03/05/18 04:07 Chief Complaint (Nursing): Cough, Cold, Congestion Chief Complaint (Provider): cough History Per: Patient History/Exam Limitations: no limitations Onset/Duration Of Symptoms: Days (1 month) Current Symptoms Are (Timing): Still Present Associated Symptoms: Sputum Additional Complaint(s): 72 y/o male presents for evaluation of persistent cough and congestion x 1 month. Patient reports he is now spitting up green sputum; which prompted ED visit. Denies fever, nausea/vomiting, chest pain, shortness of breath, palpitations, recent travel, sick contacts. Past Medical History Reviewed: Historical Data, Nursing Documentation, Vital Signs Vital Signs: Last Vital Signs Temp 97.5 F L 03/05/18 04:05 Pulse 62 03/05/18 04:05 Resp 18 03/05/18 04:05 BP 170/75 H 03/05/18 04:05 Pulse Ox 100 03/05/18 04:05 - Medical History PMH: Depression, HTN Denies: Diabetes, Hepatitis, HIV, Chronic Kidney Disease, Seizures, Sexually Transmitted Disease - Surgical History Surgical History: No Surg Hx - Family History Family History: States: Unknown Family Hx - Social History Current smoker - smoking cessation education provided: No Alcohol: > 2 Drinks/Day Drugs: Denies - Home Medications Home Medications: Ambulatory Orders Medication Instructions Recorded Albuterol HFA [Ventolin HFA 90 2 puff IH [id number] #1 inh 12/22/16 mcg/actuation (8 g)] Azithromycin [Z-Hemant] 250 mg PO ASDIR #6 tab 12/22/16 Cyclobenzaprine [Cyclobenzaprine 10 mg PO TID #20 tab 12/30/16 HCl] Methylprednisolone [Medrol Dose 4 mg PO DAILY #21 mg 12/30/16 Pack (21 tabs)] Naproxen [Naprosyn] 500 mg PO Q12H #20 tab 01/19/17 Ibuprofen [Motrin] 600 mg PO Q6 #20 tab 02/03/17 Ibuprofen [Motrin Tab] 600 mg PO Q6 #30 tab 05/09/17 Ibuprofen [Motrin Tab] 800 mg PO Q8 PRN #20 tab 07/28/17 Albuterol HFA [Ventolin HFA 90 1 puff IH Q4 PRN #1 inh 03/05/18 mcg/actuation (8 g)] Azithromycin [Zithromax] 250 mg PO DAILY #1 packet 03/05/18 Fluticasone Nasal [Flonase] 1 actuation NS BID #1 bottle 03/05/18 guaiFENesin/Dextromethorphan 1 - 2 tab PO Q12 PRN #20 tab 03/05/18 [guaiFENesin/DM 600-30 mg] - Allergies Allergies/Adverse Reactions: Allergies Allergy/AdvReac Type Severity Reaction Status Date / Time No Known Allergies Allergy Verified 01/01/18 11:25 Review of Systems ROS Statement: Except As Marked, All Systems Reviewed And Found Negative ENT: Positive for: Nose Congestion Respiratory: Positive for: Cough Physical Exam - Reviewed Nursing Documentation Reviewed: Yes Vital Signs Reviewed: Yes - Physical Exam Appears: Positive for: Well, Non-toxic, No Acute Distress Head Exam: Positive for: ATRAUMATIC, NORMAL INSPECTION, NORMOCEPHALIC Skin: Positive for: Normal Color Eye Exam: Positive for: Normal appearance ENT: Positive for: Nasal Congestion Neck: Positive for: Normal, Painless ROM Cardiovascular/Chest: Positive for: Regular Rate, Rhythm Respiratory: Positive for: Normal Breath Sounds Gastrointestinal/Abdominal: Positive for: Normal Exam Back: Positive for: Normal Inspection Extremity: Positive for: Normal ROM Neurologic/Psych: Positive for: Alert, Oriented (x3) - ECG O2 Sat by Pulse Oximetry: 100 - Radiology X-Ray: Viewed By Hi X-Ray Interpretation: No Acute Disease - Progress ED Course And Treament: -cxr -duoneb Patient educated on findings, discharged with rx Zpak, Albuterol HFA, flonase, Mucinex DM Advised follow up PMD within 2-3 days Return precautions given Disposition - Clinical Impression Clinical Impression: Bronchitis - Patient ED Disposition Is Patient to be Admitted: No Counseled Patient/Family Regarding: Studies Performed, Diagnosis, Need For Followup, Rx Given - Disposition Disposition: Routine/Home Disposition Time: 04:48 Condition: IMPROVED Prescriptions: Albuterol HFA [Ventolin HFA 90 mcg/actuation (8 g)] 1 puff IH Q4 PRN #1 inh PRN Reason: Wheezing Azithromycin [Zithromax] 250 mg PO DAILY #1 packet Fluticasone Nasal [Flonase] 1 actuation NS BID #1 bottle guaiFENesin/Dextromethorphan [guaiFENesin/DM 600-30 mg] 1 - 2 tab PO Q12 PRN #20 tab PRN Reason: cough and congestion Instructions: Acute Bronchitis Forms: [employer] (Northern Irish)
[2018-03-05] MEDS ORDERED: Albuterol-Ipratrop 3 mg / 0.5 (3 ml) UD IH STA (04:21)
[2018-03-05] MEDS ORDERED: Albuterol-Ipratrop 3 mg / 0.5 (3 ml) UD ONE (04:28)
--- NOTE | 2018-03-05 08:07 | RAD ---
Date of service: 03/05/2018 HISTORY: cough COMPARISON: Chest radiographs 12/22/2016. TECHNIQUE: Chest PA and lateral FINDINGS: LUNGS: No active pulmonary disease. PLEURA: No significant pleural effusion identified. No pneumothorax apparent. CARDIOVASCULAR: No aortic atherosclerotic calcification present. Normal cardiac size. No pulmonary vascular congestion. OSSEOUS STRUCTURES: No significant abnormalities. VISUALIZED UPPER ABDOMEN: Normal. OTHER FINDINGS: None. IMPRESSION: No interval acute cardiopulmonary disease appreciated.
== END 2018-03-05 06:26 | disposition home or self-care (01) ==
LOC: H.ER 03:54
DX: J40 Bronchitis, not specified as acute or chronic (principal)

== ENCOUNTER 2018-03-06 20:29 | Emergency (ER) | payer MEDICARE ==
[2018-03-06 20:30] VITALS: BMI 26.6
[2018-03-06 20:44] VITALS: BP 168/91; PULSE 86; RESP 16; TEMP 99.9; O2SAT 100
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
== END 2018-03-06 23:42 | disposition home or self-care (01) ==
LOC: H.ER 20:29
DX: S09.90XA Unspecified injury of head, initial encounter (principal); Y04.0XXA Assault by unarmed brawl or fight, initial encounter; Y92.89 Other specified places as the place of occurrence of the external cause; Z59.0 Homelessness; F32.9 Major depressive disorder, single episode, unspecified; I10 Essential (primary) hypertension

== ENCOUNTER 2018-03-11 13:33 | Emergency (ER) | payer MEDICARE ==
[2018-03-11 13:34] VITALS: BMI 26.6
[2018-03-11 13:40] VITALS: TEMP 98.3; O2SAT 100
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
[2018-03-11 15:40] VITALS: BP 157/74; PULSE 79; RESP 18
== END 2018-03-11 15:55 | disposition home or self-care (01) ==
LOC: H.ER 13:33
DX: S02.2XXA Fracture of nasal bones, initial encounter for closed fracture (principal); Y04.0XXA Assault by unarmed brawl or fight, initial encounter; F32.9 Major depressive disorder, single episode, unspecified; I10 Essential (primary) hypertension
CPT/HCPCS: 70160; 82948; 99282; G0480